=== PATIENT | female | born 1945 | race Hispanic/Latino ===

== ENCOUNTER → 2018-02-02 11:24 | Outpatient (CLI) | payer MEDICARE, OTHER, SELFPAY ==
--- NOTE | 2018-02-02 | DI.MG.S_ITS ---
BILATERAL DIGITAL SCREENING MAMMOGRAM 3D/2D WITH CAD: 02/02/2018 CLINICAL: Routine screening. Family history of breast cancer. Comparison is made to exams dated: 02/12/2015 mammogram, 10/25/2013 mammogram, and 10/09/2012 mammogram - [facility]. The tissue of both breasts is heterogeneously dense. This may lower the sensitivity of mammography. Current study was also evaluated with a Computer Aided Detection (CAD) system. No significant masses, calcifications, or other findings are seen in either breast. There has been no significant interval change. IMPRESSION: NEGATIVE There is no mammographic evidence of malignancy. A 1 year screening mammogram is recommended. This exam was interpreted at Station ID: [id number]. NOTE: For mammograms, a report in lay terms will be sent to the patient. Approximately 15% of breast malignancies will not be visualized mammographically. In the management of a palpable breast mass, a negative mammogram must not discourage biopsy of a clinically suspicious lesion. Electronically Signed By: Chidi pena/jennifer:02/02/2018 12:27:50 letter sent: Normal Exam ACR BI-RADS Category 1: Negative [id number]
== END ==
PROVIDERS: Family Provider Family Medicine; PCP Family Medicine; Visit Provider Family Medicine
DX: Z12.31 Encounter for screening mammogram for malignant neoplasm of breast (principal); Z80.3 Family history of malignant neoplasm of breast
CPT/HCPCS: 77063; 77067

== ENCOUNTER → 2019-08-15 12:46 | Outpatient (CLI) | payer MEDICARE, OTHER, SELFPAY | PROVIDERS: PCP Family Medicine; Visit Provider Family Medicine | DX: M85.851 Other specified disorders of bone density and structure, right thigh (principal); Z78.0 Asymptomatic menopausal state; Z87.891 Personal history of nicotine dependence | CPT/HCPCS: 77080 ==

== ENCOUNTER 2020-02-19 11:34 | Emergency (ER) | payer MEDICARE, OTHER, SELFPAY ==
[2020-02-19 11:42] VITALS: BP 184/98; PULSE 66; RESP 18; TEMP 36.1; O2SAT 99; BMI 23.6
--- NOTE | 2020-02-19 11:45 | DI.RAD.S_ITS ---
PROCEDURE: XR HAND RT MIN 3V INDICATIONS: trauma w/ laceration on dorsum of hand TECHNIQUE: 3 views of the hand(s) acquired. COMPARISON: None. FINDINGS: Bones: No fractures or dislocations. 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 Carpal bones are normally aligned. No suspicious bony lesions. Soft tissues: No suspicious soft tissue calcifications. Dorsal laceration at the level of metacarpal bone is seen. No radiopaque foreign body is noted. IMPRESSION: No acute right hand fracture or dislocation. No radiopaque foreign body. Osteoarthritic changes throughout right hand and wrist. Dictated by: Octavio De Luna M.D. on 02/19/2020 at 12:19 Approved by: Octavio De Luna M.D. on 02/19/2020 at 12:20
--- NOTE | 2020-02-19 11:57 | ED.SKABFB ---
HPI - Skin/Abscess/Foreign Bdy <CONCHITA Whiteside - Last Filed: 02/19/20 16:00> General Chief complaint: Skin/Abscess/Foreign Body Stated complaint: right arm injury Time Seen by Provider: 02/19/20 11:55 Source: patient Mode of arrival: Ambulatory Limitations: no limitations History of Present Illness HPI narrative: The patient is a 74-year-old female former smoker with history of hypertension who presents with a chief complaint of right hand injury. She slipped going on the stairs, and jammed her right hand into a railing. She has a laceration on the top of right hand. States she has full range of motion all fingers. Does not know when her last tetanus was. Did not wash out her laceration or clean it. Denies any falls other than the fall into the railing, denies any other injuries. Related Data Home Medications Medication Instructions Recorded Confirmed hydrochlorothiazide 6.25 mg PO QDAY #0 12/17/12 metoprolol succinate [Toprol XL] 50 mg PO QDAY #0 12/17/12 atorvastatin [Lipitor] 10 mg PO QDAY #0 06/03/17 Allergies Allergy/AdvReac Type Severity Reaction Status Date / Time Penicillins Allergy Severe ANAPHYLAXIS Verified 02/19/20 11:44 Review of Systems <CONCHITA Whiteside - Last Filed: 02/19/20 16:00> Review of Systems Narrative: GENERAL: Denies chills, fatigue, malaise, fever, sweats. HEENT: Denies sinus pain, ear pain, sore throat, difficulty swallowing, dizziness. RESPIRATORY: Denies dyspnea, cough, wheezing, hemoptysis, sputum. CARDIOVASCULAR: Denies chest pain, palpitations, orthopnea, edema, GASTROINTESTINAL: Denies nausea, vomiting, abdominal pain, diarrhea, constipation, melena. : Denies dysuria, frequency, incontinence, hematuria, urinary retention. MUSCULOSKELETAL: See HPI SKIN: See HPI NEUROLOGIC: Denies weakness, headache, numbness, change in speech, confusion, seizures, incoordination. PSYCHIATRIC: No concerning psychosocial issues. 12 point review of systems is negative except for those stated above Patient History <CONCHITA Whiteside - Last Filed: 02/19/20 16:00> Social History Smoking Status: Former smoker Smoking Status: Former smoker alcohol intake frequency: 0-2 drinks per day Substance Use Type: does not use Exam <CONCHITA Whiteside - Last Filed: 02/19/20 16:00> Narrative Exam Narrative: GENERAL: This is a well-nourished, well-developed patient, in no acute distress HEAD: Atraumatic. Normocephalic. No temporal or scalp tenderness. EYES: Pupils equal round and reactive. Extraocular motions intact. No scleral icterus. No injection or drainage. ENT: Nose without bleeding, purulent drainage or septal hematoma. Airway patent. NECK: Trachea midline. No JVD or lymphadenopathy. Supple, nontender, no meningeal signs. CARDIOVASCULAR: Regular rate and rhythm RESPIRATORY: No cough. No increased respiratory effort. No accessory muscle use. EXTREMITIES: Skin exam as noted. Full range of motion noted all fingers right hand. Positive right radial pulse. Cap refill intact all fingers. BACK: Nontender without deformity or crepitance. No flank tenderness. NEURO: AOx3. SKIN: V-shaped laceration/skin tear on dorsum of right hand, no obvious muscle or tendon involvement. Oozing blood. 1 cm. Initial Vital Signs Initial Vital Signs: Vital Signs Temperature 96.9 F L 02/19/20 11:42 Pulse Rate 66 02/19/20 11:42 Respiratory Rate 18 02/19/20 11:42 Blood Pressure 184/98 H 02/19/20 11:42 Pulse Oximetry 99 02/19/20 11:42 <Estephania Sexton MD - Last Filed: 02/19/20 18:18> Initial Vital Signs Initial Vital Signs: Vital Signs Temperature 96.9 F L 02/19/20 11:42 Pulse Rate 66 02/19/20 11:42 Respiratory Rate 18 02/19/20 11:42 Blood Pressure 184/98 H 02/19/20 11:42 Pulse Oximetry 99 02/19/20 11:42 Procedures <CONCHITA Whiteside - Last Filed: 02/19/20 16:00> Laceration Repair Laceration 1: Site: hand Side (If applicable): left and right Size (cm): 1 Description: flap Depth: simple, single layer Pre-repair: wound explored, irrigated extensively (With sterile water, Hibiclens) and deep structures intact Skin layer closed with: steri-strips Scores <CONCHITA Whiteside - Last Filed: 02/19/20 16:00> GCS [place] coma scale eye opening: Spontaneous [place] coma scale verbal response: Orientated [place] coma scale motor response: Obey commands [place] coma scale total score: 15 Course <CONCHITA Whiteside - Last Filed: 02/19/20 16:00> Orders Ordered: ED Orders 02/19/20 11:45 XR hand RT min 3V Stat Discontinued Medications Diphtheria/Tetanus/Acell Pertussis (Adacel) 0.5 ml IM .ONCE ONE Stop: 02/19/20 11:46 Last Admin: 02/19/20 12:33 Dose: 0.5 ml Documented by: ROGER Vital Signs Vital signs: Vital Signs - 8 hr 02/19/20 11:42 02/19/20 12:53 Temperature 96.9 F L Pulse Rate 66 61 Respiratory Rate 18 14 Blood Pressure 184/98 H Blood Pressure [Left Arm] 155/92 H Pulse Oximetry 99 98 <Estephania Sexton MD - Last Filed: 02/19/20 18:18> Orders Ordered: ED Orders 02/19/20 11:45 XR hand RT min 3V Stat Discontinued Medications Diphtheria/Tetanus/Acell Pertussis (Adacel) 0.5 ml IM .ONCE ONE Stop: 02/19/20 11:46 Last Admin: 02/19/20 12:33 Dose: 0.5 ml Documented by: ROGER Vital Signs Vital signs: Vital Signs - 8 hr 02/19/20 11:42 02/19/20 12:53 Temperature 96.9 F L Pulse Rate 66 61 Respiratory Rate 18 14 Blood Pressure 184/98 H Blood Pressure [Left Arm] 155/92 H Pulse Oximetry 99 98 MDM - Skin/Abscess/Foreign Bdy <CONCHITA Whiteside - Last Filed: 02/19/20 16:00> Imaging Data Extremity x-ray #1: Radiologist's Impression: [address] [place] [id number] XRay Report Signed Patient: Racheal Raymond LMR#: [id number] : 6Acct:[id number] Age/Sex: 74 / FDate of Service: 02/19/20 Loc: ED Accession Number: [id number] Procedure: XR hand RT min 3V Ordering Provider: Estephania Sexton MD PROCEDURE: XR HAND RT MIN 3V INDICATIONS: trauma w/ laceration on dorsum of hand TECHNIQUE: 3 views of the hand(s) acquired. COMPARISON: None. FINDINGS: Bones: No fractures or dislocations. 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 Carpal bones are normally aligned. No suspicious bony lesions. Soft tissues: No suspicious soft tissue calcifications. Dorsal laceration at the level of metacarpal bone is seen. No radiopaque foreign body is noted. IMPRESSION: No acute right hand fracture or dislocation. No radiopaque foreign body. Osteoarthritic changes throughout right hand and wrist. Dictated by: Octavio De Luna M.D. on 02/19/2020 at 12:19 Approved by: Octavio De Luna M.D. on 02/19/2020 at 12:20 MDM Narrative Medical decision making narrative: The patient is a 74-year-old female who presents with a chief complaint of a hand injury. Her tetanus is updated. No obvious fracture or foreign body on x-ray. Wound was copiously cleansed and irrigated. Wound was closed as per procedural note. Discussed at length keeping wound clean and dry, following up with primary care provider, monitoring for signs of infection such as redness purulent drainage etcetera. Patient has no questions or concerns upon discharge and states understanding of return precautions as well as follow-up care Discharge Plan Departure Patient Disposition: Home Clinical Impression: Skin tear Injury of hand, right Qualifiers: Encounter type: initial encounter Qualified Code(s): S69.91XA - Unspecified injury of right wrist, hand and finger(s), initial encounter Discharge Date/Time: 02/19/20 13:27 Instructions: DI for Laceration Repair Steri-Strips Activity Restrictions/Additional Instructions: Thank you for trusting us with your care today Your x-ray has no evidence of foreign body or fracture. We elected to close your wound with Steri-Strips. Please monitor for signs of infection such as redness, purulent drainage etcetera Do not get your hand dirty. This can increase her chance of infection. Please come back to emergency department for any acute concerns We also updated your tetanus today Prescriptions: No Action metoprolol succinate [Toprol XL] 50 MG tablet extended release 24 hr 50 mg PO QDAY Qty: 0 RF: 0 hydrochlorothiazide 12.5 MG capsule 6.25 mg PO QDAY Qty: 0 RF: 0 atorvastatin [Lipitor] 10 MG tablet 10 mg PO QDAY Qty: 0 RF: 0 Referrals: Reba Cordova MD [Primary Care Provider] - <Estephania Sexton MD - Last Filed: 02/19/20 18:18> Cosign ED Attending Cosignature Attestation: I was immediately available in the department for consultation throughout this patient's visit. I agree with documentation as above. Estephania Sexton MD
[2020-02-19] MEDS: TET,DIPH,PERTUSS(ACELL),VAC/PF 0.5 ML SYRINGE IM (12:33)
[2020-02-19 12:53] VITALS: BP 155/92; PULSE 61; RESP 14; O2SAT 98
--- NOTE | 2020-02-19 13:07 | PC.NURSE ---
patient was given wound care of her right hand. She has steri strips, telfa, 4x4's, kavon, and coban. She tolerated the procedure well.
== END 2020-02-19 13:27 | disposition home or self-care (01) ==
PROVIDERS: Emergency Provider Nurse Practitioner Family; PCP Family Medicine
DX: S61.411A Laceration without foreign body of right hand, initial encounter (principal); W22.8XXA Striking against or struck by other objects, initial encounter; Z23 Encounter for immunization
CPT/HCPCS: 73130; 90471; 99283; 90715

== ENCOUNTER → 2021-05-25 16:42 | Outpatient (CLI) | payer MEDICARE, OTHER, SELFPAY ==
--- NOTE | 2021-05-25 | DI.RAD.S_ITS ---
PROCEDURE: XR SHOULDER RT MIN 2V INDICATIONS: RIGHT SHOULDER TENDONITIS TECHNIQUE: 3 views of the shoulder were acquired. COMPARISON: CR, CHEST 1 VIEW, 12/17/2012, 17:46. FINDINGS: Bones: No fractures or dislocations. No suspicious bony lesions. Visualized ribs appear intact. Mild joint narrowing with periarticular osteophyte formation. Soft tissues: No suspicious soft tissue calcifications. IMPRESSION: Mild acromioclavicular and glenohumeral joint degeneration. Dictated by: Pedro Garnica [facility] Interpreted: Octavio De Luna MD on 05/25/2021 at 17:03 Transcribed by: BERYL on 05/25/2021 at 17:03 Approved by: Octavio De Luna M.D. on 05/25/2021 at 17:29
== END ==
PROVIDERS: PCP Family Medicine; Referring Provider Family Medicine; Visit Provider Family Medicine
DX: M65.811 Other synovitis and tenosynovitis, right shoulder (principal); M19.011 Primary osteoarthritis, right shoulder
CPT/HCPCS: 73030

== ENCOUNTER → 2021-06-14 13:20 | Outpatient (CLI) | payer MEDICARE, OTHER, SELFPAY ==
--- NOTE | 2021-06-14 | DI.US.S_ITS ---
LIMITED ULTRASOUND OF RIGHT BREAST: 06/14/2021 CLINICAL: Focal right breast pain. Comparison is made to exams dated: 06/14/2021 mammogram, 02/02/2018 mammogram, 02/12/2015 mammogram, and 10/25/2013 mammogram - [facility]. Real-time ultrasound of the right breast 12 o'clock, and retroareolar regions was performed. Rosa scale images of the real-time examination were reviewed. No significant abnormalities were seen sonographically in the right breast in the region of pain. IMPRESSION: NEGATIVE There is no sonographic evidence of malignancy. Exam findings were conveyed to the patient. Patient is advised to monitor for significant change. Clinical follow-up as needed. A 1 year screening mammogram is recommended. This exam was interpreted at Station ID: [id number]. Electronically Signed By: Kofi Calderon M.D. slc/:06/14/2021 14:35:43 letter sent: Normal Exam Ultrasound BI-RADS: 1 Negative
--- NOTE | 2021-06-14 | DI.MG.S_ITS ---
BILATERAL DIGITAL DIAGNOSTIC MAMMOGRAM 3D/2D: 06/14/2021 CLINICAL: Right nipple pain. Right breast enlargement. Comparison is made to exams dated: 02/02/2018 mammogram, 02/12/2015 mammogram, 10/25/2013 mammogram, and 10/09/2012 mammogram - [facility]. The tissue of both breasts is heterogeneously dense. This may lower the sensitivity of mammography. No significant masses, calcifications, or other findings are seen in either breast. IMPRESSION: INCOMPLETE: NEEDS ADDITIONAL IMAGING EVALUATION No mammographic evidence of malignancy. A targeted ultrasound of the right breast region of pain is recommended and will immediately follow. This exam was interpreted at Station ID: [id number]. NOTE: For mammograms, a report in lay terms will be sent to the patient. Approximately 15% of breast malignancies will not be visualized mammographically. In the management of a palpable breast mass, a negative mammogram must not discourage biopsy of a clinically suspicious lesion. Electronically Signed By: Kofi Calderon M.D. slc/:06/14/2021 13:53:27 ACR BI-RADS Category 0: Incomplete [id number]
== END ==
PROVIDERS: PCP Family Medicine; Referring Provider Family Medicine; Visit Provider Family Medicine
DX: R92.2 Inconclusive mammogram (principal); N64.4 Mastodynia; N62 Hypertrophy of breast
CPT/HCPCS: 76642; 77066; G0279

== ENCOUNTER → 2021-07-14 13:04 | Outpatient (CLI) | payer MEDICARE, OTHER, SELFPAY ==
--- NOTE | 2021-07-14 | DI.MRI.S_ITS ---
BREAST MRI OF BOTH BREASTS: 07/14/2021 CLINICAL: Right breast nipple pain. Comparison is made to exams dated: 06/14/2021 ultrasound, 06/14/2021 mammogram, and 02/02/2018 mammogram [facility]. INDICATIONS: RIGHT BREAST PAIN TECHNIQUE: The patient was placed prone in a dedicated breast imaging coil. Precontrast axial STIR and 3D FLASH without fat saturation sequences were obtained. Both before and after bolus injection of contrast, sequential 1-minute axial 3D FLASH with fat saturation sequences for 3 time points, with subtraction images and maximum intensity projections (MIP's) generated. Delayed sagittal FLASH images with fat saturation were also obtained. Computer-aided detection, including computer algorithm analysis of MRI image data for lesion detection and characterization, pharmacokinetic analysis, with further physician review for interpretation, was performed. FINDINGS: Image quality: Excellent. There is minimal background parenchymal enhancement. The tissue of both breasts is heterogeneously dense. Right breast: No suspicious mass or abnormal non-mass enhancement is identified. No focal abnormality is seen to account for the reported breast pain. No suspicious axillary or internal mammary lymphadenopathy. Left breast: A 1.8 x 0.9 x 1.1 cm area of incidental focal homogeneous non-mass enhancement is seen in the upper inner quadrant of the left breast at the 11 o'clock position anterior depth approximately 3.5 cm from the nipple. The lesion is hyperintense on T2-weighted images. A central area of interspersed fat or fatty hilum is seen. Kinetic curve assessment demonstrates slow enhancement on initial phase and progressive enhancement on delayed phase. No corresponding abnormality is seen in this location on the prior mammogram from 06/14/2021. Miscellaneous: The included anterior chest wall and upper abdomen demonstrate no acute abnormality. IMPRESSION: INCOMPLETE: NEEDS ADDITIONAL IMAGING EVALUATION 1. An incidental 1.8 cm area of focal non-mass enhancement is seen in the left breast at the 11 o'clock position anterior depth 3-4 cm from the nipple that has indeterminate features and no mammographic correlate. Differential diagnosis includes an intramammary lymph node as well as other benign and malignant etiologies. Recommend second-look ultrasound for further evaluation. If no abnormality is seen sonographically, an MR-guided biopsy could be performed. 2. No abnormality is seen in the right breast to account for the reported pain. No right breast mass or suspicious non-mass enhancement. 3. No suspicious axillary or internal mammary lymphadenopathy. BIRADS 0: Needs additional imaging evaluation. Second-look left breast ultrasound is recommended for further evaluation. COMMENT: The imaging literature indicates that a negative contrast breast MRI examination has a high sensitivity and a moderate specificity for detecting and excluding invasive carcinomas to a detection threshold of 3-5 mm; nonetheless, appropriate clinical and mammographic follow-up are recommended. MRI is not sensitive for detecting DCIS (ductal carcinoma in situ) and may not detect large invasive neoplasms that show only minimal enhancement such as mucinous carcinoma. If there are suspicious calcifications or clinically worrisome palpable masses, then biopsy should still be considered. Invasive neoplasms can be hidden by co-existent and benign enhancement caused by mastitis, hormone therapy effects, radiation therapy, , and recent biopsy or surgery. False positive examinations can occur in a number of circumstances, including breasts that have recently been subject to invasive procedures and those that contain atypical ductal hyperplasia, hormonally stimulated glandular tissue, fat necrosis, or radial scars. Future imaging is recommended as follows: 06/15/2022 screening mammogram. This exam was interpreted at Station ID: [id number]. Electronically Signed By: David De Souza M.D. ar/:07/14/2021 16:32:36 Entry: - 07/15/2021 09:26:15 ACR BI-RADS Category 0: Incomplete 3340F
== END ==
PROVIDERS: PCP Family Medicine; Referring Provider Family Medicine; Visit Provider Family Medicine
DX: R92.2 Inconclusive mammogram (principal); N64.4 Mastodynia; N64.89 Other specified disorders of breast
CPT/HCPCS: 77049; A9579

== ENCOUNTER → 2021-07-27 14:32 | Outpatient (CLI) | payer MEDICARE, OTHER, SELFPAY ==
--- NOTE | 2021-07-27 14:35 | DI.US.S_ITS ---
LIMITED ULTRASOUND OF LEFT BREAST: 07/27/2021 CLINICAL: F/U MRI. Comparison is made to exams dated: 07/14/2021 breast MRI, 06/14/2021 mammogram, and 02/02/2018 mammogram - [facility]. Color flow ultrasound of the left breast 11 o'clock region was performed. Rosa scale images of the real-time examination were reviewed. There is a 1.2 cm x 1.4 cm x 0.7 cm irregular mass with a microlobulated margin in the left breast at 11 o'clock anterior depth 3 cm from the nipple. This irregular mass is hypoechoic and heterogeneously echogenic with fatty hilum and posterior acoustic enhancement. This correlates with breast MRI findings but was not seen on the prior mammogram. IMPRESSION: SUSPICIOUS OF MALIGNANCY The 1.2 cm x 1.4 cm x 0.7 cm irregular mass in the left breast is at a low suspicion for malignancy. An ultrasound guided biopsy is recommended. The findings and recommendations were personally discussed with the patient via telephone at the time of the exam. Future imaging is recommended as follows: 06/15/2022 screening mammogram. This exam was interpreted at Station ID: [id number]. Electronically Signed By: David trivedi/jennifer:07/27/2021 15:13:35 letter sent: Biopsy Required Ultrasound BI-RADS: 4a Low suspicion for malignancy
== END ==
PROVIDERS: PCP Family Medicine; Referring Provider Family Medicine; Visit Provider Family Medicine
DX: R92.8 Other abnormal and inconclusive findings on diagnostic imaging of breast (principal); N63.22 Unspecified lump in the left breast, upper inner quadrant
CPT/HCPCS: 76642

== ENCOUNTER → 2021-08-11 10:35 | Outpatient (CLI) | payer MEDICARE, OTHER, SELFPAY ==
--- NOTE | 2021-08-11 | DI.US.S_ITS ---
PROCEDURE: US BX BREAST PERC W VAC DEVICE COMPARISON: None. INDICATIONS: LEFT BREAST MASS FINDINGS: IMPRESSION: Dictated by: Caroline Man MD, PhD on 08/11/2021 at 13:11 Approved by: Caroline Man MD, PhD on 08/11/2021 at 13:11
--- NOTE | 2021-08-11 | PATH_ITS ---
[facility] Accession Number: [id number] . 01 Material submitted: . breast - LEFT BREAST BIOPSY, 11:00 3CMFN . 01 Diagnosis: Left Breast, 11 o'clock, 3 cm from Nipple, Image-Guided Core Biopsy: Focal atypical lobular hyperplasia. Fibrocystic and fibroadenomatous change. Negative for invasive malignancy. MRV 08/13/2021 1306 Local . 01 Comment: An e-cadherin *immunostain is obtained, with the control stained appropriately, and is negative or shows low level expression on the proliferative lesion of interest, supporting lobular as opposed to ductal origin. . * This test was developed and its performance characteristics determined by [employer]. It has not been cleared or approved by the U.S. Food and Drug Administration. The FDA has determined that such clearance or approval is not necessary. This test is used for clinical purposes. It should not be regarded as investigational or for research. . 01 Electronically signed: . Berta Harkins MD, Pathologist NPI- [id number] . 01 Gross description: . Received one formalin-filled container, labeled with the patient's name and labeled left breast 11 o'clock 3 cm FN. The specimen is received with a plastic filter in container, sample loose in container and consists of three fragments of yellow-barber, cylindrical-shaped tissue and blood which range in size from 0.8 x 0.3 x 0.3 cm to 1.2 x 0.3 x 0.3 cm. All fragments are totally submitted in cassette A. Possible collection date and time per container: 08/11/21 at 11:50. Total fixation time: Approximately 15 hours. ([id number]) /FRR 08/12/2021 0331 Local . 01 Pathologist provided ICD-10: N60.81 . 01 CPT . 125951, [id number] Performed at: [facility] [address] [place] [address], [place], [place] [id number] MD Xu Yang MD Phone: [phone]
--- NOTE | 2021-08-11 | DI.MG.S_ITS ---
UNILATERAL LEFT DIGITAL DIAGNOSTIC MAMMOGRAM 3D/2D: 08/11/2021 CLINICAL: Clip. Comparison is made to exams dated: 07/27/2021 ultrasound, 07/14/2021 breast MRI, 06/14/2021 ultrasound, and 06/14/2021 mammogram - [facility]. The tissue of left breast is heterogeneously dense. This may lower the sensitivity of mammography. There is a marker clip in the appropriate position in the left breast at 11 o'clock middle depth. This marker clip placement is at the biopsy site. IMPRESSION: POST PROCEDURE MAMMOGRAM FOR MARKER PLACEMENT There was a successful marker clip placement in the left breast middle depth. This exam was interpreted at Station ID: [id number]. NOTE: For mammograms, a report in lay terms will be sent to the patient. Approximately 15% of breast malignancies will not be visualized mammographically. In the management of a palpable breast mass, a negative mammogram must not discourage biopsy of a clinically suspicious lesion. Electronically Signed By: Caroline meredith/jennifer:08/11/2021 12:06:55 ACR BI-RADS Category Post-procedure mammogram for marker placement
--- NOTE | 2021-08-11 11:13 | DI.US.S_ITS ---
Patient Name: SUSANNE FERRO date: 1945 Sex: F Attending Physician: Tasha Indications: Date: 08/11/2021 13:03 At the request of: ANTWAN SILVA Procedure: US bx breast perc w vac device ULTRASOUND GUIDED BIOPSY LEFT BREAST USING VACUUM DEVICE WITH MARKING DEVICE INSERTED AND POST DIGITAL MAMMOGRAPHIC IMAGIN08/11/2021 CLINICAL: Left breast mass. PATIENT CONSENT: Risks (minor bleeding, infection, vasovagal reaction and repeat procedure), benefits and alternatives were explained to the patient and written informed consent was obtained. Correlation is made to exams dated: 07/27/2021 ultrasound, 07/14/2021 breast MRI, 06/14/2021 ultrasound, 06/14/2021 mammogram, 02/02/2018 mammogram, and 02/12/2015 mammogram - [facility]. An ultrasound guided biopsy using real-time ultrasound was performed for the microlobulated irregular shaped mass located in the left breast at 11 o'clock middle depth. The skin was prepped in the usual manner. Local anesthetic was administered to the access site. A skin phuong was made in the breast. The abnormality was approached from the lateral aspect. A 13 gauge biopsy needle was placed adjacent to the abnormality under ultrasound guidance. Once the needle was documented to be in the correct location, three specimens were obtained using the Mammotome biopsy system. A Vision biopsy clip was inserted into the biopsy cavity. A skin closure strip was applied to the access site. Post procedure digital mammographic imaging was obtained. The specimens were sent to the laboratory for pathological analysis. IMPRESSION: ULTRASOUND GUIDED BIOPSY HIGH RISK BENIGN Ultrasound guided biopsy of the mass in the left breast at 11 o'clock middle depth was successful. Pathology indicates high risk benign atypical lobular hyperplasia (ALH). Pathology results are concordant with imaging findings. A surgical consultation is recommended. This exam was interpreted at Station ID: [id number]. Caroline Loera M.D. Continued Report - Page 2 of 2 Patient Name: SUSANNE FERRO date: 1945 Sex: F Attending Physician: Tasha Indications: Date: 08/11/2021 13:03 At the request of: ANTWAN SILVA Procedure: US bx breast perc w vac device ldc,aty/:08/17/2021 17:12:42
== END ==
PROVIDERS: PCP Family Medicine; Referring Provider Family Medicine; Visit Provider Family Medicine
DX: N60.92 Unspecified benign mammary dysplasia of left breast; N60.12 Diffuse cystic mastopathy of left breast
CPT/HCPCS: 19083; 77065

== ENCOUNTER → 2022-07-25 13:02 | Outpatient (CLI) | payer MEDICARE, OTHER, SELFPAY ==
--- NOTE | 2022-07-25 | DI.NM.S_ITS ---
PROCEDURE: NM CAL PERF SPECT REST & STR Rest and exercise myocardial perfusion SPECT with gated imaging and ejection fraction RADIOPHARMACEUTICAL: 26.1 mCi Tc-99m sestamibi IV at rest and 25.7 mCi Tc-99m sestamibi IV at peak exercise. A 2 day-protocol was performed. INDICATIONS: Paroxysmal atrial fibrillation TECHNIQUE: Radiopharmaceutical was injected at peak stress test, and also at rest. SPECT images were obtained. SPECT myocardial perfusion images were displayed in short axis, horizontal long axis, and vertical long axis views. Gated images were reviewed using [email or web address] software. COMPARISON: None. CARDIAC STRESS: A standard Paul treadmill exercise tolerance test was performed by the patient under the supervision of an attending staff. The patient exercised for 8 minutes and 34 seconds; functional aerobic impairment (FANG) is -61%. Hemodynamic data: There is normal heart rate response to exercise stress. Hypertensive response to exercise. Patient achieved 92% of maximum predicted heart rate at peak exercise. Symptoms: Patient 3/10 chest pain during exercise that resolved during within 1 minute of recovery. EKG: No diagnostic EKG changes of ischemia; occasional PACs and PVCs. FINDINGS: Raw data: There is good myocardial labeling by radiotracer. No significant motion artifacts. Rpnb-oh-lzmuj ratio is 0.23 (normal is less than 0.38 for sestamibi tracer, and less than 0.50 for thallium tracer). Left ventricle function: Gated images demonstrate normal left ventricle wall thickening. No segmental wall motion abnormality. No transient ischemic dilation; TID is 0.81 (normal less than 1.3). The left ventricle resting end-diastolic volume is 74 mL. Left ventricle stress ejection fraction is 93%; normal values are above 45%. Myocardial perfusion: There is mildly intense fixed distal anterior wall defect that resolve with prone imaging, suggesting breast attenuation artifact. No ischemia or infarction. IMPRESSION: Low risk, probably normal treadmill nuclear stress test. Correlate chest pain clinically. 1) No perfusion evidence of ischemia or infarction. There is mildly intense fixed distal anterior wall defect that resolve with prone imaging, suggesting breast attenuation artifact. 2) Normal left ventricular size, wall motion, and systolic function (EF post stress 93%). 3) No ST changes with exercise. 4) Mild (3/10) non-diagnostic chest pain with exercise that resolved with early recovery. 5) Excellent exercise capacity (10.1 METs, FANG -61%). Target heart rate achieved. Hypertensive response to exercise (patient didn't take her BP lowering meds prior to stress test). Resting BP 168/104mmHg. Max BP 198/120mmHg. 6) No prior nuclear stress test available for comparison. Dictated by: Melissa Glynn MD on 07/26/2022 at 16:59 Approved by: Melissa Glynn MD on 07/26/2022 at 17:10
--- NOTE | 2022-07-25 | DI.ECHO.S_ITS ---
[place] [facility] +---------+ : : [address] : : : : [id number] : : : : Phone: [phone] Echocardiogram Report + + :Name: SUSANNE FERRO Study Date: 07/25/2022 Height: 68 in : :[facility] ReadingLocation: Weight: 170 lb : : Gender: Female BSA: 1.9 m2 : :: 1945 Age: 77 yrs BP: 160/105 mmHg: :Reason For Study: ATRIAL FIBRILLATION : :Ordering Physician: RICARDO, : :ANTWAN Performed By: Karissa Cuello : :Referring: ANTWAN SILVA : + + Interpretation Summary Normal left ventricle size with ejection fraction 60-65%. The left atrium is mildly dilated. Mild mitral regurgitation. Mild tricuspid regurgitation. The right ventricular systolic pressure is estimated to be at least 37 mmHg based on an estimated right atrial pressure of 3 mm Hg. The ascending aorta is mildly enlarged. Procedure: A two-dimensional transthoracic echocardiogram with color flow and Doppler was performed. The study quality was technically adequate. Comparison is made with the echocardiogram of 12/28/2012. The patient was in sinus rhythm with heart rates between 56-71 bpm during the exam. Left Ventricle: The left ventricle is normal in size and wall thickness. The ejection fraction is estimated to be 60-65%. There are no focal wall motion abnormalities. Right Ventricle: The right ventricle is normal in size and function. Atria: The left atrium is mildly dilated. Right atrial size is normal. There is no Doppler evidence for an interatrial shunt. Mitral Valve: The mitral valve is normal in structure and function. There is mild mitral regurgitation. Aortic Valve: The aortic valve is trileaflet. The aortic valve opens well. There is no aortic valve stenosis. No aortic regurgitation is present. Tricuspid Valve: The tricuspid valve is normal in structure and function. There is mild tricuspid regurgitation. The right ventricular systolic pressure is estimated to be at least 37 mmHg based on an estimated right atrial pressure of 3 mm Hg. Pulmonic Valve: The pulmonic valve leaflets are thin and pliable; valve motion is normal. There is mild pulmonic regurgitation. Great Vessels: The aortic root is normal size. The ascending aorta is mildly enlarged. The IVC is of normal diameter and collapses greater than 50% with a sniff. This suggests a low right atrial pressure of 3 mm Hg. Pericardium/ Pleura There is no pericardial effusion. There is no pleural effusion. MMode/2D Measurements & Calculations LVIDd: 5.0 cm LVOT diam: 2.0 cm LVIDs: 2.9 cm Ao root diam: 2.8 cm FS: 42.1 % asc Aorta Diam: 3.8 cm IVSd: 0.77 cm Ao Arch Diam (Prox Trans): 2.9 cm LVPWd: 0.73 cm LV monroe. diameter/BSA (cm/m^2): 2.6 LV sys. diameter/BSA (cm/m^2): 1.5 LA A2 area: 20.9 cm2 RA long axis: 5.0 cm LA A4 area: 24.7 cm2 RA area: 17.3 cm2 LA length (vol): 6.2 cm RA vol: 51.2 ml LA vol: 70.6 ml RA : 26.9 ml/m2 LA vol index: 37.0 ml/m2 IVC diam: 1.6 cm RVD1 (basal): 3.7 cm RVD2 (mid): 2.9 cm TAPSE: 2.1 cm Doppler Measurements & Calculations Ao V2 max: 158.9 cm/sec LVOT Max William: 142.5 cm/sec Ao V2 mean: 110.6 cm/sec LV V1 max P.1 mmHg Ao max P.1 mmHg LV V1 VTI: 34.3 cm Ao mean P.6 mmHg EDWIN(I,D): 2.6 cm2 Ao V2 VTI: 40.4 cm EDWIN(V,D): 2.7 cm2 sev ratio: 0.85 EDWIN indexed to BSA (cm^2/m^2): 1.4 MV E max william: 114.0 cm/sec TR max william: 290.8 cm/sec MV A max william: 66.8 cm/sec TR max P.8 mmHg MV E/A: 1.7 PA V2 max: 87.8 cm/sec Med Peak E' William: 6.8 cm/sec PA V2 mean: 66.5 cm/sec E/E' med: 16.8 PA mean P.0 mmHg Lat Peak E' William: 9.5 cm/sec PA pr(Accel): 13.9 mmHg E/E' lat: 12.0 E/e' average: 14.4 MV dec time: 0.21 sec SV(LVOT): 105.1 ml Electronically signed by: Sarita Woodward on Reading Physician:07/25/2022 10:42 PM
[2022-07-25 15:29] LABS: COVID19 -Nasal RAPID Negative (Negative)
== END ==
PROVIDERS: PCP Family Medicine; Referring Provider Family Medicine; Visit Provider Family Medicine
DX: I48.0 Paroxysmal atrial fibrillation (principal); I08.1 Rheumatic disorders of both mitral and tricuspid valves; I77.89 Other specified disorders of arteries and arterioles; R06.09 Other forms of dyspnea; R00.0 Tachycardia, unspecified; Z86.79 Personal history of other diseases of the circulatory system; Z20.822 Contact with and (suspected) exposure to COVID-19
CPT/HCPCS: 78452; 87635; 93017; 93306; A9502

== ENCOUNTER 2022-07-27 09:51 | Emergency (ER) | payer MEDICARE, OTHER, SELFPAY ==
[2022-07-27] VITALS (11 sets, daily range): BP systolic 139–232; BP diastolic 79–111; PULSE 61–78; RESP 15–20; TEMP 36.9; O2SAT 94–98; BMI 25.8
--- NOTE | 2022-07-27 09:56 | DI.RAD.S_ITS ---
PROCEDURE: XR CHEST 1V INDICATIONS: chest pain TECHNIQUE: One view of the chest was acquired. COMPARISON: [facility], , CHEST 2 VIEW, 05/31/2013, 13:32. FINDINGS: Surgical changes and devices: Pacemaker device is projected over the left upper lung. Lungs and pleura: Lungs are clear. No pleural effusions or pneumothorax. Mediastinum: Mediastinal contours appear normal. Heart size is normal. Bones and chest wall: No suspicious bony lesions. Overlying soft tissues appear unremarkable. IMPRESSION: No acute cardiopulmonary findings. Dictated by: Cheryl Nunez M.D. on 07/27/2022 at 10:24 Approved by: Cheryl Nunez M.D. on 07/27/2022 at 10:37
[2022-07-27 10:28] LABS: Add Manual Diff / Slide Review NO; Basophils Absolute Auto 0 /uL (0-100); Basophils Percent Auto 0.9 % (0-2); Eosinophils Absolute Auto 300 /uL (0-450); Eosinophils Percent Auto 8.2 % (2-4); Hematocrit 41.6 % (36-46); Hemoglobin 14.3 g/dL (12.0-16.0); Lymphocytes Absolute Auto 1300 /uL (1100-4500); Lymphocytes Percent Auto 31.2 % (25-40); Mean Corpuscular HGB Conc 34.3 % (30-36); Mean Corpuscular Hemoglobin 31.3 PG (26-34); Mean Corpuscular Volume 91.1 fL (80-100); Monocytes Absolute Auto 300 /uL (0-900); Monocytes Percent Auto 7.2 % (3-14); Neutrophils Absolute Auto 2200 /uL (1500-7000); Neutrophils Percent Auto 52.5 % (50-75); Platelet Count 158 X10^3/uL (150-400); Red Blood Cell Count 4.57 X10^6/uL (4.0-5.2); Red Cell Distribution Width 13.4 % (11.6-14.8); White Blood Cell Count 4.3 X10^3/uL (4.5-11.0)
--- NOTE | 2022-07-27 10:35 | ED.GENADULT ---
HPI - General Adult General Chief complaint: Dizziness Stated complaint: high blood pressure and dizzy Time Seen by Provider: 07/27/22 10:00 Source: patient Mode of arrival: Ambulatory Limitations: no limitations History of Present Illness HPI narrative: Patient is a 77-year-old female. Does have a history of high blood pressure. Is having frequent PVCs. Is currently on metoprolol. Did take her metoprolol this morning. Had a fairly extensive cardiac workup over the last couple days here at the hospital. This is ordered by her primary doctor. She comes to emergency department today for evaluation of high blood pressure. She states that this morning at breakfast she started to not feel very well. Some lightheadedness. Dizziness. No chest pain. No shortness of breath. No lower extremity swelling. She does have a ZIO patch in place. Related Data Home Medications Medication Instructions Recorded Confirmed hydrochlorothiazide 12.5 mg capsule 6.25 mg PO QDAY ##0 12/17/12 metoprolol succinate 50 mg 50 mg PO QDAY ##0 12/17/12 tablet,extended release 24 hr (Toprol XL) atorvastatin 10 mg tablet (Lipitor) 10 mg PO QDAY ##0 06/03/17 Allergies Allergy/AdvReac Type Severity Reaction Status Date / Time Penicillins Allergy Severe ANAPHYLAXIS Verified 02/19/20 11:44 Review of Systems Review of Systems ROS Unobtainable: All systems reviewed & are unremarkable except as noted in HPI and below Patient History Medical History Hypertension Social History Smoking Status: Former smoker Smoking Status: Former smoker alcohol intake frequency: 0-2 drinks per day Substance Use Type: does not use Exam Initial Vital Signs Initial Vital Signs: Vital Signs Temperature 98.4 F 07/27/22 09:58 Pulse Rate 74 07/27/22 09:58 Respiratory Rate 16 07/27/22 09:58 Blood Pressure 232/111 H 07/27/22 09:58 Pulse Oximetry 97 07/27/22 09:58 Oxygen Delivery Method 07/27/22 09:58 Const General: cooperative, comfortable, well developed and No ill appearing HENMT Head: normal to inspection and normocephalic Resp Effort & Inspection: normal respiratory effort Auscultation: clear to auscultation bilaterally Cardio Rate: regular rate Rhythm: regular rhythm GI Inspection: normal to inspection Skin General: no rashes or lesions noted Neuro General: patient alert, patient awake and moves all extremities Extrem General: normal to inspection, capillary refill normal and No edema Psych Appearance: grossly normal and well kempt Course Orders Ordered: ED Orders 07/27/22 09:56 XR chest 1V Stat 07/27/22 10:14 EKG-12 Lead Stat 07/27/22 10:15 Complete Blood Count AUTO DIFF Stat Comprehensive Metabolic Panel Stat Lipase Stat Magnesium Stat Partial Thromboplastin Time Stat Troponin & CK Cardiac Panel Stat 07/27/22 12:12 Troponin & CK Cardiac Panel Stat Vital Signs Vital signs: Vital Signs - 8 hr 07/27/22 09:58 07/27/22 09:59 07/27/22 10:00 Temperature 98.4 F Pulse Rate 74 78 77 Respiratory Rate 16 Blood Pressure 232/111 H Pulse Oximetry 97 94 98 Oxygen Delivery Method Room Air Room Air 07/27/22 10:29 07/27/22 10:29 07/27/22 10:30 Temperature Pulse Rate 70 69 Respiratory Rate 15 19 Blood Pressure 190/101 H Pulse Oximetry 96 96 Oxygen Delivery Method 07/27/22 11:00 07/27/22 11:05 07/27/22 11:05 Temperature Pulse Rate 65 66 Respiratory Rate 20 17 Blood Pressure 155/90 H Pulse Oximetry 96 96 Oxygen Delivery Method 07/27/22 11:30 07/27/22 11:30 07/27/22 12:00 Temperature Pulse Rate 63 63 Respiratory Rate 16 20 Blood Pressure 152/85 H Pulse Oximetry 96 94 Oxygen Delivery Method 07/27/22 12:13 07/27/22 12:13 07/27/22 12:30 Temperature Pulse Rate 61 Respiratory Rate 19 Blood Pressure 139/80 172/79 H Pulse Oximetry 96 Oxygen Delivery Method Room Air 07/27/22 12:30 Temperature Pulse Rate 61 Respiratory Rate 17 Blood Pressure Pulse Oximetry 97 Oxygen Delivery Method Medical Decision Making Medical Records Medical records reviewed: Yes I reviewed the patient's medical records. Lab Data Lab results reviewed: Yes I reviewed the patient's lab results. Result diagrams: 07/27/22 10:15 07/27/22 10:15 Labs: Lab Results 11/30/22 11/30/22 11/30/22 Range/Units 10:15 10:15 10:15 WBC 4.3 L (4.5-11.0) X10^3/uL RBC 4.57 (4.0-5.2) X10^6/uL Hgb 14.3 (12.0-16.0) g/dL Hct 41.6 (36-46) % MCV 91.1 (80-100) fL MCH 31.3 (26-34) PG MCHC 34.3 (30-36) % RDW 13.4 (11.6-14.8) % Plt Count 158 (150-400) X10^3/uL Neut % (Auto) 52.5 (50-75) % Lymph % (Auto) 31.2 (25-40) % [place] % (Auto) 7.2 (3-14) % Eos % (Auto) 8.2 H (2-4) % Baso % (Auto) 0.9 (0-2) % Neut # (Auto) 2200 (6892-5254) /uL Lymph # (Auto) 1300 (7520-8074) /uL [place] # (Auto) 300 (0-900) /uL Eos # (Auto) 300 (0-450) /uL Baso # (Auto) 0 (0-100) /uL APTT 30 (26-36) SECONDS Sodium 140 (137-145) mmol/L Potassium 3.6 (3.4-5.1) mmol/L Chloride 104 (98-107) mmol/L Carbon Dioxide 29 (22-32) mmol/L BUN 16 (7-17) mg/dL Creatinine 0.90 (0.52-1.04) mg/dL Estimated GFR > 60 (>60) mL/min BUN/Creatinine Ratio 17.8 (6-22) Glucose 97 (80-110) mg/dL Calcium 9.5 (8.4-10.2) mg/dL Magnesium 2.1 (1.6-2.3) mg/dL Total Bilirubin 0.5 (0.2-1.3) mg/dL AST 26 (14-36) IU/L ALT 25 (<35) IU/L Alkaline Phosphatase 78 (38-126) U/L Total Creatine Kinase 84 (30-135) U/L CK-MB (CK-2) TNP CK-MB (CK-2) Rel Index TNP Troponin I 0.037 H (0.01-0.034) ng/mL Total Protein 7.4 (6.3-8.2) g/dL Albumin 4.5 (3.5-5.0) g/dL Globulin 2.9 (1.7-4.1) g/dL Albumin/Globulin Ratio 1.6 (1.0-2.8) Lipase 66 (23-300) U/L // Range/Units 12:12 WBC (4.5-11.0) X10^3/uL RBC (4.0-5.2) X10^6/uL Hgb (12.0-16.0) g/dL Hct (36-46) % MCV (80-100) fL MCH (26-34) PG MCHC (30-36) % RDW (11.6-14.8) % Plt Count (150-400) X10^3/uL Neut % (Auto) (50-75) % Lymph % (Auto) (25-40) % [place] % (Auto) (3-14) % Eos % (Auto) (2-4) % Baso % (Auto) (0-2) % Neut # (Auto) (2599-3168) /uL Lymph # (Auto) (9432-7978) /uL [place] # (Auto) (0-900) /uL Eos # (Auto) (0-450) /uL Baso # (Auto) (0-100) /uL APTT (26-36) SECONDS Sodium (137-145) mmol/L Potassium (3.4-5.1) mmol/L Chloride (98-107) mmol/L Carbon Dioxide (22-32) mmol/L BUN (7-17) mg/dL Creatinine (0.52-1.04) mg/dL Estimated GFR (>60) mL/min BUN/Creatinine Ratio (6-22) Glucose (80-110) mg/dL Calcium (8.4-10.2) mg/dL Magnesium (1.6-2.3) mg/dL Total Bilirubin (0.2-1.3) mg/dL AST (14-36) IU/L ALT (<35) IU/L Alkaline Phosphatase (38-126) U/L Total Creatine Kinase 74 (30-135) U/L CK-MB (CK-2) TNP CK-MB (CK-2) Rel Index TNP Troponin I 0.030 (0.01-0.034) ng/mL Total Protein (6.3-8.2) g/dL Albumin (3.5-5.0) g/dL Globulin (1.7-4.1) g/dL Albumin/Globulin Ratio (1.0-2.8) Lipase (23-300) U/L Imaging Data Chest x-ray: Radiologist's Impression: [address] [address] XRay Report Signed Patient: Racheal Raymond MR#: [id number] : 1945 Acct:[id number] Age/Sex: 77 / F Date of Service: 07/27/22 Loc: ED Accession Number: [id number] ?? Procedure: XR chest 1V Ordering Provider: Kaleb Vaz D.O. PROCEDURE:? XR CHEST 1V ? INDICATIONS:? chest pain ? TECHNIQUE:? One view of the chest was acquired.? ? COMPARISON:? [facility], , CHEST 2 VIEW, 05/31/2013, 13:32. ? FINDINGS:? ? Surgical changes and devices:? Pacemaker device is projected over the left upper lung. ? Lungs and pleura:? Lungs are clear.? No pleural effusions or pneumothorax.? ? Mediastinum:? Mediastinal contours appear normal.? Heart size is normal.? ? Bones and chest wall:? No suspicious bony lesions.? Overlying soft tissues appear unremarkable.? ? IMPRESSION:? No acute cardiopulmonary findings. ? ? Dictated by: Cheryl Nunez M.D. on 07/27/2022 at 10:24 ? ? Approved by: Cheryl Nunez M.D. on 07/27/2022 at 10:37?? ECG Data Attestation: I personally reviewed and interpreted this ECG as follows: Interpretation: Sinus rhythm Frequent PVCs Normal QRS Normal QTC No ST T wave changes MDM Narrative Medical decision making narrative: Patient's blood pressure improved without specific intervention here in the ER. Fevers. No chest pain. Was feeling somewhat lightheaded. Review of her record shows that just over the past week she had a normal echocardiogram and also a normal nuclear perfusion study. Initial troponin elevated but 2nd troponin negative. I suspect that this was related to her blood pressure. This is in the setting of no chest pain. I did discuss the findings with the patient's primary doctor. The plan will be is to increase her metoprolol. This very well could help with her frequent PVCs as well. Primary doctor will follow the patient up at the beginning of next week. Had a long discussion with the patient regarding return precautions. She expressed understanding and agreement Discharge Plan Departure Patient Disposition: Home Clinical Impression: Hypertension Instructions: High Blood Pressure Activity Restrictions/Additional Instructions: After discussion with your primary doctor we would like you to take 50 mg of your metoprolol in the morning and 25 mg (1/2 tablet) metoprolol at night. Continue the rest of your medicines as directed. Take your blood pressure at home like we discussed. Your primary doctor would like you to follow-up at the beginning of next week. Return to the emergency department for any new or worsening symptoms. Prescriptions: No Action metoprolol succinate [Toprol XL] 50 MG tablet extended release 24 hr 50 mg PO QDAY Qty: 0 hydrochlorothiazide 12.5 MG capsule 6.25 mg PO QDAY Qty: 0 atorvastatin [Lipitor] 10 MG tablet 10 mg PO QDAY Qty: 0 Referrals: Reba Cordova MD [Primary Care Provider] -
[2022-07-27 10:41] LABS: PTT Partial Thromboplastin Tim 30 SECONDS (26-36)
[2022-07-27 10:43] LABS: Alanine Aminotransferase 25 IU/L (<35); Albumin 4.5 g/dL (3.5-5.0); Albumin Globulin Ratio 1.6 (1.0-2.8); Alkaline Phosphatase 78 U/L (38-126); Aspartate Aminotransferase 26 IU/L (14-36); BUN Creatinine Ratio 17.8 (6-22); Bilirubin Total 0.5 mg/dL (0.2-1.3); Blood Urea Nitrogen 16 mg/dL (7-17); Calcium 9.5 mg/dL (8.4-10.2); Carbon Dioxide 29 mmol/L (22-32); Chloride 104 mmol/L (98-107); Creatine Kinase 84 U/L (30-135); Estimated Glomerular Filt Rate > 60 mL/min (>60); Globulin 2.9 g/dL (1.7-4.1); Glucose 97 mg/dL (80-110); HEMOLYSIS < 15 (0-50); Lipase 66 U/L (23-300); Magnesium 2.1 mg/dL (1.6-2.3); Potassium 3.6 mmol/L (3.4-5.1); Sodium 140 mmol/L (137-145); Total Protein 7.4 g/dL (6.3-8.2)
[2022-07-27 10:53] LABS: Troponin I 0.037 ng/mL (0.01-0.034)
[2022-07-27 12:31] LABS: Creatine Kinase 74 U/L (30-135)
== END 2022-07-27 13:34 | disposition home or self-care (01) ==
PROVIDERS: Emergency Provider Emergency Medicine; PCP Family Medicine
DX: I10 Essential (primary) hypertension (principal); R07.9 Chest pain, unspecified
CPT/HCPCS: 36415; 71045; 80053; 82550; 83690; 83735; 84484; 85025; 85730; 93005; 99283; 99284

== ENCOUNTER → 2022-08-12 09:24 | Outpatient (CLI) | payer MEDICARE, OTHER, SELFPAY ==
--- NOTE | 2022-08-12 | DI.MG.S_ITS ---
BILATERAL DIGITAL SCREENING MAMMOGRAM 3D/2D WITH CAD: 08/12/2022 CLINICAL: Routine screening. Family history of breast cancer. Comparison is made to exams dated: 06/14/2021 mammogram, 02/02/2018 mammogram, and 02/12/2015 mammogram - [facility]. Both breasts are heterogeneously dense, which may obscure small masses (category c / 51-75% glandular tissue). Current study was also evaluated with a Computer Aided Detection (CAD) system. There is a possible asymmetry in the left breast at 11 o'clock middle depth. This is more prominent. No other significant masses, calcifications, or other findings are seen in either breast. IMPRESSION: INCOMPLETE: NEEDS ADDITIONAL IMAGING EVALUATION The possible asymmetry in the left breast is indeterminate. Additional views with possible ultrasound are recommended. Based on Tyrer-Cuzick model (a risk assessment model), the patient's lifetime risk is 22.5% and her 10 year risk is 0.0%. If a patient has an elevated risk, a more comprehensive evaluation should be considered and/or a referral to a genetic counselor. The [place] [employer], [employer], and NCCN Guidelines advise the consideration of Breast MRI as an adjunct to screening mammography in patients whose Lifetime risk to develop breast cancer is 20% or higher. This exam was interpreted at Station ID: [id number]. NOTE: For mammograms, a report in lay terms will be sent to the patient. Approximately 15% of breast malignancies will not be visualized mammographically. In the management of a palpable breast mass, a negative mammogram must not discourage biopsy of a clinically suspicious lesion. Electronically Signed By: Augusto Hernandez M.D., jr/jennifer:08/12/2022 12:08:28 letter sent: Additional Imaging Needed ACR BI-RADS Category 0: Incomplete 3340F
== END ==
PROVIDERS: PCP Family Medicine; Referring Provider Family Medicine; Visit Provider Family Medicine
DX: Z12.31 Encounter for screening mammogram for malignant neoplasm of breast (principal); Z80.3 Family history of malignant neoplasm of breast
CPT/HCPCS: 77063; 77067

== ENCOUNTER → 2022-09-20 09:57 | Outpatient (CLI) | payer MEDICARE, OTHER, SELFPAY ==
--- NOTE | 2022-09-20 | DI.MG.S_ITS ---
UNILATERAL LEFT DIGITAL DIAGNOSTIC MAMMOGRAM 3D/2D WITH ADDITIONAL VIEWS: 09/20/2022 CLINICAL: Additional evaluation requested from prior study. Comparison is made to exams dated: 08/12/2022 mammogram, 08/11/2021 mammogram, 06/14/2021 mammogram, and 02/02/2018 mammogram - [facility]. The left breast is heterogeneously dense, which may obscure small masses (category c / 51-75% glandular tissue). There is a possible asymmetry in the left breast at 11 o'clock middle depth. This is slightly more prominent but may be due to post surgical scarring. No other significant masses or calcifications are seen in the breast. IMPRESSION: INCOMPLETE: NEEDS ADDITIONAL IMAGING EVALUATION The possible asymmetry in the left breast has a differential diagnosis of dense fibroglandular tissue or post-surgical scarring and is indeterminate. An ultrasound is recommended for further evaluation and is scheduled to immediately follow this examination. Based on Tyrer-Cuzick model (a risk assessment model), the patient's lifetime risk is 22.5% and her 10 year risk is 0.0%. If a patient has an elevated risk, a more comprehensive evaluation should be considered and/or a referral to a genetic counselor. The [place] [employer], [employer], and NCCN Guidelines advise the consideration of Breast MRI as an adjunct to screening mammography in patients whose Lifetime risk to develop breast cancer is 20% or higher. This exam was interpreted at Station ID: [id number]. NOTE: For mammograms, a report in lay terms will be sent to the patient. Approximately 15% of breast malignancies will not be visualized mammographically. In the management of a palpable breast mass, a negative mammogram must not discourage biopsy of a clinically suspicious lesion. Electronically Signed By: Ayo Loera M.D. aty/:09/20/2022 11:56:24 ACR BI-RADS Category 0: Incomplete 3340F
--- NOTE | 2022-09-20 | DI.US.S_ITS ---
ULTRASOUND OF LEFT BREAST: 09/20/2022 CLINICAL: Patient returns today to evaluate an asymmetry in the left breast. Comparison is made to exams dated: 09/20/2022 mammogram - [facility], 09/27/2021 localization, 09/27/2021 specimen - [facility], 08/11/2021 mammogram, 08/11/2021 ultrasound biopsy, and 07/27/2021 ultrasound - [facility]. Color flow and real-time ultrasound of the left breast were performed. Rosa scale images of the real-time examination were reviewed. There are post-operative findings noted in the upper inner quadrant without a definite mass or abnormal vascularity. There is a 0.3 cm x 0.2 cm x 0.3 cm oval cyst in the left breast at 10 o'clock posterior depth 5 cm from the nipple. This oval cyst is hypoechoic. This correlates as an incidental finding. Color flow imaging demonstrates that there is no vascularity present. IMPRESSION: PROBABLY BENIGN The 0.3 cm x 0.2 cm x 0.3 cm oval cyst in the left breast is consistent with a complicated cyst and is probably benign. Mammographic findings in the upper inner quadrant likely related to fibroglandular tissue and post surgical changes and are probably benign. A follow-up bilateral mammogram and left ultrasound in 6 months is recommended to demonstrate stability. Findings and recommendations were conveyed to the patient during today's evaluation. This exam was interpreted at Station ID: [id number]. Electronically Signed By: Ayo Loera M.D. aty/:09/20/2022 12:02:36 letter sent: Followup Recommended Ultrasound BI-RADS: 3 Probably benign
== END ==
PROVIDERS: PCP Family Medicine; Referring Provider Family Medicine; Visit Provider Family Medicine
DX: R92.8 Other abnormal and inconclusive findings on diagnostic imaging of breast (principal); N60.02 Solitary cyst of left breast
CPT/HCPCS: 76642; 77065; G0279

== ENCOUNTER → 2022-11-10 12:46 | Outpatient (CLI) | payer MEDICARE, OTHER, SELFPAY ==
[2022-11-10 13:45] LABS: Alanine Aminotransferase 31 IU/L (<35); Albumin 4.5 g/dL (3.5-5.0); Albumin Globulin Ratio 1.8 (1.0-2.8); Alkaline Phosphatase 79 U/L (38-126); Aspartate Aminotransferase 30 IU/L (14-36); BUN Creatinine Ratio 25.3 (6-22); Bilirubin Total 0.6 mg/dL (0.2-1.3); Blood Urea Nitrogen 21 mg/dL (7-17); Calcium 9.5 mg/dL (8.4-10.2); Carbon Dioxide 29 mmol/L (22-32); Chloride 103 mmol/L (98-107); Cholesterol 200 mg/dL (140-199); Estimated Glomerular Filt Rate > 60 mL/min (>60); Globulin 2.5 g/dL (1.7-4.1); Glucose 93 mg/dL (80-110); HDL Cholesterol 71 mg/dL (40-60); HEMOLYSIS < 15 (0-50); LDL Cholesterol Calculated 88 mg/dL (<100); Potassium 3.8 mmol/L (3.4-5.1); Sodium 139 mmol/L (137-145); Triglycerides 203 mg/dL (35-150)
[2022-11-10 14:46] LABS: Thyroid Stimulating Hormone 1.52 uIU/mL (0.47-4.68)
== END ==
PROVIDERS: PCP Family Medicine; Referring Provider Family Medicine; Visit Provider Family Medicine
DX: E78.5 Hyperlipidemia, unspecified (principal); I10 Essential (primary) hypertension; R00.0 Tachycardia, unspecified
CPT/HCPCS: 36415; 80053; 80061; 84443

== ENCOUNTER → 2023-04-06 09:50 | Outpatient (CLI) | payer MEDICARE, OTHER, SELFPAY ==
--- NOTE | 2023-04-06 | DI.US.S_ITS ---
LIMITED ULTRASOUND OF LEFT BREAST: 04/06/2023 CLINICAL: Left breast follow up. Comparison is made to exams dated: 09/20/2022 ultrasound, 04/06/2023 mammogram, 09/20/2022 mammogram, 08/12/2022 mammogram - [facility], 09/27/2021 localization, and 09/27/2021 specimen - [facility]. Color flow ultrasound of the left breast 3 o'clock and 10-11 o'clock regions was performed. Rosa scale images of the real-time examination were reviewed. The left breast has stable post-operative findings 11:00 middle depth. The 0.3 cm incidental oval cyst in the left breast at 10:30 posterior depth 5 cm from the nipple is no longer seen. No sonographic finding to correspond to the patient's mammographic abnormality in the lateral left breast. IMPRESSION: PROBABLY BENIGN Interval resolution of tiny complicated left breast cyst. The post surgical area in the left breast is otherwise stable without new suspicious features. There is no sonographic abnormality seen in the left breast to correspond with the mammography finding at 3 o'clock. A follow-up left mammogram and an ultrasound in 6 months is recommended to demonstrate stability. The patient will be due for bilateral mammograms at that same visit. Findings and recommendations were conveyed to the patient at time of exam. This exam was interpreted at Station ID: [id number]. Electronically Signed By: Jenn londono/:04/06/2023 11:14:46 letter sent: Followup Recommended Ultrasound BI-RADS: 3 Probably benign
--- NOTE | 2023-04-06 | DI.MG.S_ITS ---
UNILATERAL LEFT DIGITAL DIAGNOSTIC MAMMOGRAM 3D/2D SHORT-TERM FOLLOW-UP: 04/06/2023 CLINICAL: Short term follow up for the left breast. Comparison is made to exams dated: 09/20/2022 mammogram, 08/12/2022 mammogram, 07/14/2021 breast MRI, 06/14/2021 mammogram, and 02/02/2018 mammogram - [facility]. The left breast is heterogeneously dense, which may obscure small masses (category c / 51-75% glandular tissue). There is an asymmetry in the left breast at 11 o'clock middle depth which has not significantly changed, probably post operative changes. There also is a possible new 6 mm oval asymmetry with an obscured and circumscribed margin in the left breast at 3 o'clock anterior depth. No other significant masses or calcifications are seen in the breast. IMPRESSION: INCOMPLETE: NEEDS ADDITIONAL IMAGING EVALUATION The asymmetry in the left breast at 11 o'clock middle depth is stable, has a differential diagnosis of fibroglandular tissue or a post-surgical scar. An ultrasound is recommended to document stability. This was performed immediately following this exam. The possible new 6 mm oval asymmetry in the left breast at 3 o'clock anterior depth is possibly a cyst but remains indeterminate. An ultrasound is recommended. This was performed immediately following this exam. Based on Tyrer-Cuzick model (a risk assessment model), the patient's lifetime risk is 22.5% and her 10 year risk is 0.0%. If a patient has an elevated risk, a more comprehensive evaluation should be considered and/or a referral to a genetic counselor. The [place] [employer], [employer], and NCCN Guidelines advise the consideration of Breast MRI as an adjunct to screening mammography in patients whose Lifetime risk to develop breast cancer is 20% or higher. This exam was interpreted at Station ID: [id number]. NOTE: For mammograms, a report in lay terms will be sent to the patient. Approximately 15% of breast malignancies will not be visualized mammographically. In the management of a palpable breast mass, a negative mammogram must not discourage biopsy of a clinically suspicious lesion. Electronically Signed By: Jenn londono/:04/06/2023 10:50:23 ACR BI-RADS Category 0: Incomplete [id number]
== END ==
PROVIDERS: PCP Family Medicine; Referring Provider Family Medicine; Visit Provider Family Medicine
DX: N60.02 Solitary cyst of left breast (principal); R92.8 Other abnormal and inconclusive findings on diagnostic imaging of breast
CPT/HCPCS: 76642; 77065; G0279

== ENCOUNTER → 2023-11-08 08:41 | Outpatient (CLI) | payer MEDICARE, OTHER, SELFPAY ==
--- NOTE | 2023-11-08 08:42 | DI.MG.S_ITS ---
BILATERAL DIGITAL DIAGNOSTIC MAMMOGRAM 3D/2D: 11/08/2023 CLINICAL: Patient returns for a 6 month follow up of the left breast, due for bilateral exam. Comparison is made to exams dated: 04/06/2023 ultrasound, 04/06/2023 mammogram, 09/20/2022 ultrasound, 09/20/2022 mammogram, 08/12/2022 mammogram, and 08/11/2021 ultrasound [facility]. Both breasts are heterogeneously dense, which may obscure small masses (category c / 51-75% glandular tissue). There is a possible asymmetry in the left breast at 11 o'clock middle depth. This is not significantly changed and was not seen on the prior ultrasound. There also is a 6 mm oval asymmetry with an obscured and circumscribed margin in the left breast at 3 o'clock anterior depth. This is more prominent. No other significant masses, calcifications, or other findings are seen in either breast. IMPRESSION: INCOMPLETE: NEEDS ADDITIONAL IMAGING EVALUATION The possible asymmetry in the left breast at 11 o'clock middle depth resembles fibroglandular tissue or a post-surgical scar and is indeterminate. The 6 mm oval asymmetry in the left breast at 3 o'clock anterior depth resembles a cyst and is indeterminate. A targeted ultrasound is recommended and will immediately follow. Based on Tyrer-Cuzick model (a risk assessment model), the patient's lifetime risk is 20.7% and her 10 year risk is 0.0%. If a patient has an elevated risk, a more comprehensive evaluation should be considered and/or a referral to a genetic counselor. The [place] [employer], [employer] [employer], and NCCN Guidelines advise the consideration of Breast MRI as an adjunct to screening mammography in patients whose Lifetime risk to develop breast cancer is 20% or higher. This exam was interpreted at Station ID: [id number]. NOTE: For mammograms, a report in lay terms will be sent to the patient. Approximately 15% of breast malignancies will not be visualized mammographically. In the management of a palpable breast mass, a negative mammogram must not discourage biopsy of a clinically suspicious lesion. Electronically Signed By: Kofi Calderon M.D. [facility]/:11/08/2023 09:31:03 ACR BI-RADS Category 0: Incomplete 3340F
--- NOTE | 2023-11-08 08:43 | DI.US.S_ITS ---
LIMITED ULTRASOUND OF LEFT BREAST AND AXILLA: 11/08/2023 CLINICAL: 6 month follow-up. Comparison is made to exams dated: 11/08/2023 mammogram, 04/06/2023 ultrasound, 04/06/2023 mammogram, 09/20/2022 ultrasound, and 09/20/2022 mammogram - [facility]. Color flow and real-time ultrasound of the left breast 4 o'clock, 11 o'clock, and axilla regions were performed. Rosa scale images of the real-time examination were reviewed. There is a 1.1 cm x 0.7 cm x 0.6 cm mass in the left breast at 4 o'clock anterior depth 4 cm from the nipple. This mass is hypoechoic with posterior acoustic shadowing. This correlates with mammography findings. Color flow imaging demonstrates that there is vascularity present. No sonographic abnormality in the region of the possible asymmetry in the left breast at 11 o'clock middle depth. No significant abnormalities were seen sonographically in the left axilla. IMPRESSION: SUSPICIOUS OF MALIGNANCY The 1.1 cm x 0.7 cm x 0.6 cm mass in the left breast at 4 o'clock anterior depth is at a moderate suspicion for malignancy. An ultrasound guided biopsy is recommended. No enlarged left axillary lymph nodes. Exam findings were discussed with the patient by Dr. Thibodeaux. Recommend follow-up mammogram in 6 months of the left breast for the possible asymmetry in the upper medial quadrant. This exam was interpreted at Station ID: [id number]. Electronically Signed By: Kofi Calderon M.D. slc/:11/08/2023 10:17:49 letter sent: Biopsy Required Ultrasound BI-RADS: 4b Moderate suspicion of malignancy
== END ==
LOC: MAMMO 08:42
PROVIDERS: PCP Family Medicine; Referring Provider Family Medicine; Visit Provider Family Medicine
DX: R92.8 Other abnormal and inconclusive findings on diagnostic imaging of breast; N63.23 Unspecified lump in the left breast, lower outer quadrant; N64.4 Mastodynia; R92.333 Mammographic heterogeneous density, bilateral breasts
CPT/HCPCS: 76642; 77066; G0279

== ENCOUNTER → 2023-11-29 14:09 | Outpatient (CLI) | payer MEDICARE, OTHER, SELFPAY ==
--- NOTE | 2023-11-29 | PATH_ITS ---
[facility] Accession Number: [id number] No. of containers..01 Tissue . 01 Material submitted: . breast - LEFT BREAST MASS 4:00, 4CMFN . 01 Clinical history: . 4CMFN . 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 Combined total [place] histologic score: 6 to 7 out of 9 possible (tubule formation 2 to 3 out of 3, nuclear pleomorphism 2 out 3, mitotic index 2 out of 3). Overall grade: Grade 2 (moderately differentiated). In situ carcinoma: Present, ductal type, predominantly solid pattern intermediate to high nuclear grade, with focal comedo necrosis. Lymphovascular invasion: Not definitely seen, please see microscopic description. Microcalcifications: Rare microcalcification present within invasive carcinoma. Greatest linear extent of invasive carcinoma: 9.5 mm, as measured from the glass slide. Predictive markers: Estrogen and progesterone receptors positive. HER2 negative for expression by immunohistochemistry (please see microscopic description for details). [facility] 12/01/2023 1457 Local . 01 Comment: The results of the case are verbally provided by Dr. Daugherty to [employer], Rhiannon, on 12/01/2023 at 2:15 p.m. . As part of ongoing quality assurance group leader, selective slides have been reviewed by Dr. Berta Harkins, who agrees with the interpretation. . 01 Electronically signed: . Brenda Daugherty MD, Pathologist NPI- [id number] . 01 Gross description: . Received is one formalin-filled container labeled with the patient's name and designated left breast mass 4 o'clock 4 cm FN. The sample is received with plastic filter in container and sample loose in container, and consists of multiple yellow-lu pieces of tissue which range in size from 0.2 x 0.2 x 0.2 cm to 1.5 x 0.3 x 0.3 cm. All fragments are totally submitted in cassette A1. . Possible collection date and time per requisition 11/29/2023 at 1504 hours, total fixation time approximately 12 hours. ([id number]) /SHANIKA 11/30/2023 0549 Local . 01 Microscopic: . Microscopic examination of the breast biopsies (left breast mass) reveals infiltrating tumor cells forming predominantly solid nests and fewer acini. . Immunostains are performed with the following results: E-cadherin and beta-catenin show strong positivity on the tumor cells, supporting ductal differentiation. GATA3 is strong positive, supporting breast origin, p63 and myosin immunostains support infiltrating carcinoma and also foci of carcinoma in situ, and D2-40 staining pattern does not definitely support lymphovascular invasion. . Estrogen Receptor: Positive, intermediate intensity, approximately 90% on the invasive tumor cells. . Progesterone Receptor: Positive, intermediate intensity, 50-60%, on the invasive tumor cells. . HER2: Negative (1+). . . Internal controls for ER and [place] are positive. Cold ischemic time is <5 minutes. The scoring criteria for breast biomarkers by immunohistochemistry is based on the ASCO/CAP guidelines (Kyle AC et al, J Clin Oncol: 2017Mar 06;36(20):3982-9070 and Jamar POLO et al, Arch Pathol Lab Med: 2009;134(6):907-22). Deparaffinized sections of formalin fixed tissue (along with appropriate positive controls) are incubated with the above antibody(s). Using the automated [place] stainer, tissue is incubated with the designated antibody which is then localized by a non-biotin, dual polymer detection system. The external controls are reviewed for appropriate reactivity and found to be adequate. Results on the target cell population are indicated above. These tests have not been validated on decalcified or alcohol-based fixed tissue. This test was developed and its performance characteristics determined by [employer]. It has not been cleared or approved by the U.S. Food and Drug Administration. The FDA has determined that such clearance or approval is not necessary. This test is used for clinical purposes. It should not be regarded as investigational or for research. . * This test was developed and its performance characteristics determined by [facility]. It has not been cleared or approved by the U.S. Food and Drug Administration. The FDA has determined that such clearance or approval is not necessary. This test is used for clinical purposes. It should not be regarded as investigational or for research. . 01 Pathologist provided ICD-10: C50.812 . 01 CPT . 823789, S76985, Q98752, 032481, 195424, [id number] Performed at: 01 [facility] [address] [place] [address] [id number] MD Xu Yang MD Phone: [phone]
--- NOTE | 2023-11-29 14:11 | DI.MG.S_ITS ---
UNILATERAL LEFT DIGITAL DIAGNOSTIC MAMMOGRAM 3D/2D POST-PROCEDURE IMAGING FOR MARKER PLACEMENT: 11/29/2023 CLINICAL: Post clip. Comparison is made to exams dated: 11/08/2023 ultrasound, 11/08/2023 mammogram, 04/06/2023 ultrasound, 04/06/2023 mammogram, and 09/20/2022 mammogram - [facility]. The left breast is heterogeneously dense, which may obscure small masses (category c / 51-75% glandular tissue). There is a marker clip in the appropriate position in the left breast at 4 o'clock middle depth at the biopsy site. IMPRESSION: POST PROCEDURE MAMMOGRAM FOR MARKER PLACEMENT There was a successful marker clip placement in the left breast middle depth. This exam was interpreted at Station ID: [id number]. Electronically Signed By: Kofi Calderon M.D. slc/:11/29/2023 15:21:53 ACR BI-RADS Category Post-procedure mammogram for marker placement
--- NOTE | 2023-11-29 14:12 | DI.US.S_ITS ---
ULTRASOUND GUIDED BIOPSY LEFT BREAST WITH MARKING DEVICE INSERTED AND POST DIGITAL MAMMOGRAPHIC IMAGIN11/29/2023 CLINICAL: Left breast mass. PATIENT CONSENT: Risks (minor bleeding, infection, vasovagal reaction and repeat procedure), benefits and alternatives were explained to the patient and written informed consent was obtained. Correlation is made to exams dated: 11/29/2023 mammogram, 11/08/2023 ultrasound, 11/08/2023 mammogram, 04/06/2023 ultrasound, 04/06/2023 mammogram, and 09/20/2022 ultrasound - [facility]. An ultrasound guided biopsy using real-time ultrasound was performed for the 1.1 cm x 0.7 cm x 0.6 cm irregular shaped mass located in the left breast at 4 o'clock anterior depth 4 cm from the nipple. This was described on the previous ultrasound report. The skin was prepped in the usual manner. Local anesthetic was administered to the access site. A skin phuong was made in the breast. The abnormality was approached from the lateral aspect. A 14 gauge biopsy needle was placed adjacent to the abnormality under ultrasound guidance. Once the needle was documented to be in the correct location, 5 cores were obtained using [employer] Elevation. A brie clip was inserted into the biopsy cavity. A skin adhesive and a sterile dressing were applied to the access site. Post procedure digital mammographic imaging demonstrates the location device at the targeted area. The specimens were sent to the laboratory for pathological analysis. IMPRESSION: ULTRASOUND GUIDED BIOPSY MALIGNANT Ultrasound guided biopsy of the 1.1 cm x 0.7 cm x 0.6 cm mass in the left breast at 4 o'clock anterior depth 4 cm from the nipple was successful with no apparent post procedure complications. Pathology indicates malignant invasive ductal carcinoma (ID). Pathology results are concordant with imaging findings. A surgical/oncologic consultation is recommended. This exam was interpreted at Station ID: [id number]. Kofi Calderon M.D. [facility]/:12/05/2023 09:30:01
== END ==
LOC: US 14:10
PROVIDERS: PCP Family Medicine; Referring Provider Family Medicine; Visit Provider Family Medicine
DX: C50.512 Malignant neoplasm of lower-outer quadrant of left female breast (principal); Z17.0 Estrogen receptor positive status [ER+]
CPT/HCPCS: 19083; 77065

== ENCOUNTER → 2024-01-02 07:51 | Outpatient (CLI) | payer MEDICARE, OTHER, SELFPAY ==
--- NOTE | 2024-01-02 07:53 | DI.NM.S_ITS ---
PROCEDURE: NM SENTINEL NODE INJECT ONLY RADIOPHARMACEUTICAL: 0.5-1.0 mCi Millipore filtered Tc-99m sulfur colloid. INDICATIONS: LEFT BREAST CANCER COMPARISON: [facility], , MM DIAGNOSTIC MAMMO UNILAT LT2D, 11/29/2023, 15:00. [facility], US, US BX BREAST PERC W VAC DEVICE, 11/29/2023, 14:16. PROCEDURE: The area around the nipple was prepped and draped in a sterile fashion. Tc-99m sulfur colloid was injected intra-dermally around the outer edge of the areola in the left breast breast. No image was obtained. IMPRESSION: Administration of radiotracer into the left breast breast periareolar region for intra-operative sentinel lymph node localization. Dictated by: Sony Carrasquillo M.D. on 01/02/2024 at 10:27 Approved by: Sony Carrasquillo M.D. on 01/02/2024 at 10:31
== END ==
PROVIDERS: PCP Family Medicine; Referring Provider Surgery; Visit Provider Surgery
DX: C50.912 Malignant neoplasm of unspecified site of left female breast (principal)
CPT/HCPCS: 38792; A9541

== ENCOUNTER 2024-01-02 07:55 | Day surgery (SDC) | payer MEDICARE, OTHER, SELFPAY ==
[2023-12-26 10:54] VITALS: BMI 23.6
--- NOTE | 2024-01-02 | PATH_ITS ---
[facility] Accession Number: [id number] No. of containers..03 Tissue . 01 Material submitted: . PART A: breast - LEFT BREAST MASS PART B: breast - LEFT BREAST PART C: body - LEFT BREAST SENTINAL NODE . 01 Clinical history: . A: MARGIN MARKER: GREEN (ANTERIOR), BLUE (INFERIOR), ORANGE (LATERAL), YELLOW (MEDIAL), BLACK.. B: NEW INFERIOR MARGIN . 01 Diagnosis: A. LEFT BREAST MASS, EXCISION: Invasive (ductal carcinoma), grade 2 of 3 ([place] combined histologic grade, total score 7/9) with the following features: 1. Tumor size (invasive component): 2.3 cm by microscopic measurement; see comment. 2. Nuclear pleomorphism: Intermediate. (2/3) 3. Mitotic count: Intermediate. (2/3) 4. Tubular differentiation: Little or none. (3/3). 5. Ductal carcinoma in situ: Present, with the following features: - High grade, with punctate necrosis. - Extent: Present on multiple slides (corresponding to tissue slices 1-5), spanning approximately 28 mm. 6. Calcifications: Present, in association with benign tissue and ductal carcinoma in situ. 7. Lymphatic space invasion: Not definitively identified. 8. Resection margins: - Invasive carcinoma: * Positive (tumor at ink/cautery i.e. transected) at the anterior margin (A2, slice 1). * More than 2 mm from all remaining margins. - DCIS: * At ink/cautery: inferior margin (A9). * Less than 2 mm away: from inferior margin (A5, A7, A9, A10), from junction between inferior and medial (A4 and A6). * 2 mm away: from junction of anterior and inferior margins (A1), and from lateral margin (A5). * More than 2 mm from all remaining margins. 9. Prognostic markers (performed on prior biopsy), and reported as follows: - Estrogen receptor status: Positive. - Progesterone receptor status: Positive. - HER2: Negative; see comment. 10. Axillary lymph node status: One sentinel lymph node (see part B) removed and is negative for carcinoma. 11. Nonaxillary lymph node status: None removed or found within the specimen. 12. Additional findings: - Skin, nipple, and skeletal muscle are not present for evaluation. - Biopsy site clip/changes are seen. 13. Pathologic stage: pT2 pN0(sn). 14. Best tumor block for future studies: A3. . B. LEFT BREAST, NEW INFERIOR MARGIN, EXCISION: Residual high-grade ductal carcinoma in situ. Extent: 13 mm. Inked/Cauterized tissue edges: - One small focus likely at inked/cauterized tissue edge (B3); see comment. - 3 foci of 2-3 mm linear span of DCIS in 3 consecutive slices less than 2 mm from inked/cauterized tissue edge (B2 and B3). Negative for invasive malignancy. . C. LEFT BREAST SENTINEL LYMPH NODES, DISSECTION: One lymph node, negative for malignancy (0/1). . COMMENT: * Size of carcinoma: based on likely full involvement of length of at least 4 slices, each about 0.58 cm. * Her2 IHC is repeated on A3 and results will be reported in an addendum. * In part B, residual DCIS is seen close to an inked/cauterized edge and focally very close (i.e. one fibroblast away) in B3 and is likely cauterized over a linear span of 1 mm. This edge is not orientable. Clinical correlation is necessary to determiner whether this edge represents the new margin. [facility] 01/15/2024 1116 Local . 01 Electronically signed: . Lynnette Glez MD, Pathologist NPI- [id number] . 01 Gross description: . A. Received: In formalin with two identifiers and left breast. Specimen: A previously inked left lumpectomy. Weight: 25 grams. Measurement: 4.6 cm from anterior to posterior, 4.2 cm from medial to lateral, 2.5 cm from superior to inferior. Skin ellipse: Absent. Wire: Present, penetrating superiorly and terminating inferiorly (from red to blue margins). Margins: Inked by the surgeon using the margin marker color scheme as follows: Anterior green, inferior blue, lateral orange, medial yellow, posterior black, superior red. Inking reinforced at the bench. Note: The green ink has run into the yellow ink within the container. Sliced: From anterior to posterior into eight slices. Lesion: One lesion identified. Description: An ill-defined pink-lu, firm lesion. Size: 1.6 cm from medial to lateral, 0.9 cm from anterior to posterior, 0.7 cm from superior to inferior. Slices involved: 2-4. Biopsy site: A cylindrical biopsy clip is found within slice 3. Distance to margins: 0.4 cm from the green ink, 0.9 cm from the orange ink, 0.6 cm from the blue ink, 0.7 cm from the yellow ink, and greater than 1 cm from all remaining margins. Other: The remaining cut surfaces are yellow to white fibroadipose tissue with white fibrous tissue occupying approximately 10% of the cut surface. No additional lesions are identified. Fixation: The specimen was removed on 01/02/2024, time not provided, cold ischemic time cannot be calculated, total fixation time is approximately 53 hours. [place] sections are submitted as follows: A1-A2: Entire slice 1 green margin perpendicular. No visible lesion. A3-A4: Composite slice 2. A5-A6: Composite slice 3. A7-A8: Composite slice 4. A9-A10: Composite slice 5, no lesion. A11: [place] slice 8 black margin perpendicular. B. Received in formalin with two identifiers and left breast new inferior margin, is an unoriented yellow lobulated soft tissue fragment weighing 7 grams and measuring 4.5 x 2.4 x 1.0 cm. The slightly concave surface is stained blue and inked blue at the bench, while the slightly convex surface is inked green. Serially sectioned into 10 slices to reveal a yellow, soft cut surface with no lesions identified. White fibrous tissue occupies approximately 10% of the cut surface. Fixation: The specimen was removed on 01/02/2024, time not provided, cold ischemic time cannot be calculated, total fixation time is approximately 53 hours. Submitted entirely as follows: B1: Slice 1 perpendicular. B2-B5: Slices 2-9, sequentially. B6: Slice 10 perpendicular. C. Received in formalin with two identifiers and sentinel node, is a lu lymph node candidate with a small amount of attached adipose measuring 1.7 x 1.5 x 0.7 cm. A portion of the cut surface has dark trabeculations across an area measuring 0.7 x 0.5 x 0.3 cm. Submitted entirely in cassettes C1-C2. ([id number]) /SHANIKA 01/15/2024 1110 Local . 01 Microscopic: . Immunohistochemical studies are performed on blocks A2, A9, and C1 and C2 in order to evaluate areas of interest. . Block A2: P63 and smooth muscle myosin are negative within areas of interest. JULIANA in block A2 highlights invasive carcinoma present at the inked margin. . Extensive perineural invasion is seen. . Block A9: D2-40 does not demonstrate immunoreactivity around areas of invasive carcinoma excluding definite evidence of lymphovascular space invasion. . Block C1 and C2: JULIANA is negative in sections of lymph node. . * This test was developed and its performance characteristics determined by [employer]. It has not been cleared or approved by the U.S. Food and Drug Administration. The FDA has determined that such clearance or approval is not necessary. This test is used for clinical purposes. It should not be regarded as investigational or for research. . 01 Pathologist provided ICD-10: C50.912 . 01 CPT . 167327, 191259, 746087, F78769, [id number] Specimen Comment: A courtesy copy of this report has been sent to [phone] Performed at: 01 [facility] [address] [place] [address] [address] [facility], [place], [place] [id number] MD Xu Yang MD Phone: [phone]
--- NOTE | 2024-01-02 | DI.MG.S_ITS ---
MAMMOGRAPHY GUIDED WIRE LOCALIZATION LEFT BREAST WITH POST MAMMOGRAPHIC IMAGIN01/02/2024 CLINICAL: Left breast wire localization. Correlation is made to exams dated: 11/29/2023 mammogram, 11/08/2023 mammogram, 04/06/2023 mammogram, and 09/20/2022 mammogram - [facility]. A wire localization using mammography guidance was performed for the marker clip located in the left breast at 2 o'clock middle depth. This was described on the previous mammography report. The skin was prepped in the usual manner. Local anesthetic was administered to the access site. The localization was approached from the caudocranial aspect. A J-hook wire was inserted into the targeted area under mammography guidance. Post placement mammographic imaging was obtained. IMPRESSION: WIRE LOCALIZATION Wire localization for the marker clip in the left breast at 2 o'clock middle depth was successful. Future imaging is recommended as follows: 05/10/2024 follow-up left mammogram. This exam was interpreted at Station ID: [id number]. Aba campos/penannmarie:01/02/2024 11:28:44
--- NOTE | 2024-01-02 | DI.MG.S_ITS ---
SPECIMEN: 01/02/2024 CLINICAL: Breast cancer. Correlation is made to exams dated: 01/02/2024 localization, 11/29/2023 ultrasound biopsy, 11/29/2023 mammogram, and 11/08/2023 [facility]. Left breast lumpectomy specimen contains the biopsy clip. IMPRESSION: SPECIMEN Left breast lumpectomy specimen contains the biopsy clip. This exam was interpreted at Station ID: [id number]. Kofi Calderon M.D. slc/:01/02/2024 17:36:35
[2024-01-02 08:14] VITALS: BP 165/95; PULSE 64; RESP 18; TEMP 36.4; O2SAT 100; BMI 23.6
[2024-01-02] MEDS: LACTATED RINGERS 1,000 ML 42 ML IV ×2 (08:22→13:59)
[2024-01-02] MEDS: ACETAMINOPHEN 325 MG TABLET 975 MG PO (08:38)
--- NOTE | 2024-01-02 12:13 | PM.PREOP ---
Pre-operative Note COVID-19 COVID-19 status: Not tested Interval Note History & Physical reviewed/Exam performed by Physician: Yes Changes to H&P: No ASA Class (for procedural sedation): II
--- NOTE | 2024-01-02 13:24 | SUR.OPER ---
Supine on padded OR bed, head on pillow, arms secured on padded arm boards at <90 degrees abduction, legs uncrossed, safety belt at thigh, tape over blanket over lower legs.
[2024-01-02] MEDS: BUPIVACAINE 0.5% W/ EPI (PF) 30 ML VIAL INJ (13:39)
[2024-01-02] MEDS: METHYLENE BLUE 50 MG/10 ML VIAL INJ (13:41)
[2024-01-02] MEDS: BACITRACIN OINT 0.9 GM PCKT 1 APPLIC TOP (14:17)
--- NOTE | 2024-01-02 14:26 | PM.OP.1 ---
Operative Date/Time/Diagnoses Date of procedure: 01/02/24 Time of procedure: 14:26 Pre-op diagnosis: Left breast cancer Post-op diagnosis: same Procedure & Clinicians Procedure: Wire localization left breast lumpectomy [place] lymph node biopsy Same procedure as scheduled: Yes Surgeon: Zhao Alicea Sql Application Developer: Aamir Hernandez Anesthesia Type: General Operative Notes Procedure in detail: The patient had injection of lymphoscintigraphy as well as placement of a localizing wire into the left breast at Radiology prior to surgery. The patient was brought to the operating room, placed on the table in the supine position, general endotracheal anesthesia was induced. Arms were abducted on arm boards. 5 mL of 50% methylene blue were injected near the left areolar border. The left breast and axilla were prepped and draped in the usual fashion. A time-out was performed. Additional massage was performed to spread the methylene blue. We started with the lumpectomy. We made a 7 cm incision over the left breast at the 3 o'clock position. We created flaps superior and inferior to the incision and then dissected down to the lateral chest wall keeping the mass in the wire within the center of the specimen. The wire was pulled through the skin into. We reached serratus anterior musculature at the deepest aspect of the dissection. During extraction of the specimen the distal end of the wire could be palpated at the inferior aspect of the specimen so an additional thin margin of tissue was taken from the inferior portion of the wound cavity and sent as ?new inferior margin?. The specimen was sent to Radiology for specimen mammogram. We then created a transverse left axillary incision of roughly 6 cm at the hairline. We dissected down through the subcutaneous adipose tissue and entered the axillary fat. The lymphoscintigraphy probe did not identify any notable increased signal above background however pair of nodes were palpated 1 of which was blue and were dissected free. There was no ex vivo lymphoscintigraphy signal. Pair of nodes was sent to path. We then irrigated both wound cavities with sterile saline. Marcaine was injected into the muscle layer of the lumpectomy site. A few bleeders were cauterized. A few many metal clips were applied within the lumpectomy cavity. Once the wound cavities were hemostatic we injected some additional Marcaine into the dermis and closed both incisions in layers using multiple interrupted 3-0 Vicryl dermal sutures followed by a running 4-0 Monocryl subcuticular closure. Steri-Strips were applied followed by dry gauze and a breast binder. EBL: 20 mL Specimen: Left sentinel node, left breast lumpectomy and new inferior margin Post-operative Condition: stable Disposition: PACU
[2024-01-02 14:41] VITALS: BP 144/85; PULSE 76; RESP 18; TEMP 36.6; O2SAT 95
[2024-01-02 14:46] VITALS: BP 160/90; PULSE 70; RESP 18; O2SAT 97
[2024-01-02 14:51] VITALS: BP 146/84; PULSE 74; RESP 14; TEMP 36.1; O2SAT 97
[2024-01-02 14:58] VITALS: BP 152/88; PULSE 73; RESP 12; TEMP 36.4; O2SAT 99
[2024-01-02] MEDS: OXYCODONE IR 5 MG TABLET PO (15:00)
[2024-01-02 15:03] VITALS: BP 152/88; PULSE 69; RESP 14; O2SAT 97
== END 2024-01-02 15:30 | disposition home or self-care (01) ==
PROVIDERS: PCP Family Medicine; Referring Provider Surgery; Visit Provider Surgery
PROC: (CPT 19301; principal; 2024-01-02 11:15)
DX: C50.912 Malignant neoplasm of unspecified site of left female breast (principal); Z17.0 Estrogen receptor positive status [ER+]
CPT/HCPCS: 19301; 38500; 19281; 38792; 76098; A9541; C1819; J1100; J1885; J2405; J2704; Q9968

== ENCOUNTER 2024-01-29 06:39 | Day surgery (SDC) | payer MEDICARE, OTHER, SELFPAY ==
[2024-01-17 12:38] VITALS: BMI 23.6
[2024-01-29] VITALS (7 sets, daily range): BP systolic 123–161; BP diastolic 76–92; PULSE 60–75; RESP 12–16; TEMP 36.3–36.5; O2SAT 96–100; BMI 23.6
--- NOTE | 2024-01-29 | PATH_ITS ---
[facility] Accession Number: [id number] No. of containers..02 Tissue . 01 Material submitted: . PART A: breast - LEFT BREAST ANTERIOR/LATERAL MARGINS PART B: breast - LEFT BREAST NEW INFERIOR MARGIN . 01 Clinical history: . A) SUTURE = LATERAL* . 01 Diagnosis: A. LEFT BREAST ANTERIOR/LATERAL MARGINS, EXCISION: Negative for invasive ductal carcinoma. Focal ductal carcinoma in situ, high-grade, solid-type, with a linear span of 1-2 mm. Background previous biopsy changes present. Skin, subcutaneous tissue and skeletal muscle: Unremarkable. Surgical margins: Negative for ductal carcinoma in situ; however, ductal carcinoma in situ is located less than 2 mm from the closest medial (blue-inked margin). Remaining margins are more than 2 mm away from ductal carcinoma in situ. Please see microscopic description. . B. LEFT BREAST, NEW INFERIOR MARGIN, EXCISION: Negative for invasive ductal carcinoma and negative for ductal carinoma in situ. Previous biopsy changes present. Surgical margins: Unremarkable. [facility] 02/05/2024 1518 Local . 01 Comment: Selected slide on part A (slide A1) has also been reviewed by Dr. Lynnette Glez, who agrees with the interpretation. . 01 Electronically signed: . Brenda Daugherty MD, Pathologist NPI- [id number] . 01 Gross description: . A. Received: In formalin with tow identifiers and left breast anterior/lateral margin suture lateral. Specimen: an oriented left re-excision with partial seroma cavity from the left breast. Weight: 16 grams. Measurement: 5.4 cm from anterior to posterior, 5.0 cm medial to lateral, 1.7 cm superior to inferior. Skin ellipse: Present measuring 5.6 x 1.5 cm with a linear previous scar measuring 4.6 cm in length and located centrally. Wire: Absent. Margins: A single suture through the skin designates the lateral edge per the requisition. Inked as follows: Superior orange, inferior red, medial blue, lateral green, anterior yellow, posterior/seroma cavity black. Sliced: From medial to lateral into 11 slices. Lesions: No distinct lesions are identified. Other: The cut surfaces are yellow and slightly firm/rubbery possibly consistent with surgical site changes occupying approximately 90% of the cut surface. Fixation: The specimen was removed on 01/29/2024, time not provided, cold ischemic time cannot be calculated, total fixation time is approximately 56 hours. The specimen is submitted entirely as follows: A1: Slice 1, perpendicular. A2-A10: Sequential slices 2-10, one slice per cassette (slice in A10 is a partial section). A11-A15: Slice 11, green margin, perpendicular. B. Received in formalin with two identifiers and new inferior margin left breast, is an unoriented thin fragment of fibroadipose tissue weighing 4 grams and measuring 5.4 x 2.9 x 0.3 cm. One aspect is smooth and glistening consistent with seroma cavity and is inked black while the opposite surface is yellow and lobulated and is inked green. It is sectioned to reveal yellow slightly rubbery cut surface consistent with surgical site changes. No distinct lesions are identified. The specimen is submitted entirely as follows: B1: First slice perpendicular. B2-B4: Sequential central slices. B5-B6: Last slice, perpendicular. Fixation: The specimen was removed on 01/29/2024, time not provided, cold ischemic time cannot be calculated, total fixation time is approximately 56 hours. ([id number]) /SHANIKA 01/31/2024 0945 Local . 01 Microscopic: . A. To better evaluate the two minute foci of ductal carcinoma in situ (on block A1), deeper levels and immunostains are performed with the following results: Myosin and p63 highlight intact myoepithelial/basal cell layer, supporting ductal carcinoma in situ and absence of invasive carcinoma. . * This test was developed and its performance characteristics determined by [employer]. It has not been cleared or approved by the U.S. Food and Drug Administration. The FDA has determined that such clearance or approval is not necessary. This test is used for clinical purposes. It should not be regarded as investigational or for research. . 01 Pathologist provided ICD-10: C50.912 . 01 CPT . 447025, 982127, I18630, K44605 Specimen Comment: A courtesy copy of this report has been sent to [phone] Performed at: [address] [id number] MD Xu Yang MD Phone: [phone]
[2024-01-29] MEDS: LACTATED RINGERS 1,000 ML 42 ML IV (07:12)
--- NOTE | 2024-01-29 07:28 | SUR.OPER ---
Supine on padded OR bed, head on pillow, arms secured on padded arm boards at <90 degrees abduction, legs uncrossed, safety belt at thigh, tape over blanket over lower legs.
--- NOTE | 2024-01-29 07:44 | PM.HP.1 ---
History of Present Illness History of Present Illness Date Patient Seen: 01/29/24 Time Patient Seen: 07:44 Chief complaint: Re-excision of left breast Narrative: Path from recent left breast lumpectomy showed positive anterior margin. [facility] Medical History Arthritis Seasonal allergies Concussion (2008) HLD (hyperlipidemia) Hypertension Surgical History (Updated 01/17/24 @ 12:45 by Susan Lan RN) S/P lumpectomy, left breast (01/02/24) Hx of LASIK (1999) Hx of bilateral cataract extraction (2019) History of ankle surgery (2002) Hx of hand surgery (1978) History of lumpectomy of left breast Hx of hysterectomy (1977) Social History household members: spouse Smoking Status: Former smoker alcohol intake: current Meds Home Medications and Allergies Home Medications Medication Instructions Recorded Confirmed Type metoprolol succinate 50 mg 50 mg PO BID ##0 12/17/12 01/29/24 History tablet,extended release 24 hr (Toprol XL) atorvastatin 10 mg tablet (Lipitor) 10 mg PO DAILY #0 tabs 12/06/23 01/29/24 History hydrochlorothiazide 25 mg tablet 12.5 mg PO DAILY 12/06/23 01/29/24 History losartan 25 mg tablet 25 mg PO BID 12/06/23 01/29/24 History Allergies Allergy/AdvReac Type Severity Reaction Status Date / Time Penicillins Allergy Severe ANAPHYLAXIS Verified 01/29/24 07:03 latex AdvReac Mild Rash Verified 01/29/24 07:03 Exam Vital Signs (past 8 hours): - 01/29/24 07:08 Temperature 97.4 F L Pulse Rate 60 Respiratory Rate 16 Blood Pressure 161/88 H Pulse Oximetry 100 Oxygen Delivery Method Room Air Oxygen Delivery Method Room Air Narrative Exam Narrative: Well-healing left lumpectomy scar Assessment & Plan Assessment and plan (1) Breast cancer, left: Qualifiers: Breast location: lower outer quadrant of breast Estrogen receptor status: positive Patient sex: female Qualified Code(s): C50.512 - Malignant neoplasm of lower-outer quadrant of left female breast; Z17.0 - Estrogen receptor positive status [ER+] Status: Acute Plan We discussed the plan for re-excision of left breast lumpectomy taking the anterior margin to include skin. She would like to proceed. No antibiotics indicated
[2024-01-29] MEDS: LIDOCAINE 1% W/EPI 20 ML INJ (08:23)
[2024-01-29] MEDS: BUPIVACAINE 0.5% (PF) 30 ML VIAL INJ (08:24)
--- NOTE | 2024-01-29 08:48 | PM.OP.1 ---
Operative Date/Time/Diagnoses Date of procedure: 01/29/24 Time of procedure: 08:48 Pre-op diagnosis: Left breast cancer Post-op diagnosis: same Procedure & Clinicians Procedure: Reexcision of left breast cancer Same procedure as scheduled: Yes Surgeon: Zhao Alicea Anesthesia Type: General Operative Notes Procedure in detail: The patient is a 78-year-old woman who has a left breast cancer. She had a recent left breast wire localized lumpectomy and sentinel lymph node biopsy. Path came back with positive margins. The patient was marked in the preoperative area. The patient was brought to the operating room and general anesthesia was induced via LMA. No antibiotics were administered. A time-out was performed. We reexcised the prior lumpectomy scar including an ellipse of skin measuring approximately 7 cm x 3 cm. We took subcutaneous tissue under the skin until we got to the seroma cavity. We suctioned out the seroma cavity. We continued taking the lateral aspect of the seroma cavity along with the anterior skin specimen. The anterior skin was marked with a silk stitch along its lateral aspect. We also took an additional slice of inferior and medial aspect of the wound cavity and sent both specimens in formalin. Together these two specimens incorporated essentially all of the pre-existing seroma margin. A few bleeders were cauterized. The skin was then closed in layers using multiple interrupted 3-0 Vicryl dermal sutures and a running 4-0 Monocryl subcuticular closure. Steri-Strips and binder were applied. EBL: 30 mL Specimens: Anterior and inferior seroma cavity margins Post-operative Condition: stable Disposition: PACU
== END 2024-01-29 09:25 | disposition home or self-care (01) ==
PROVIDERS: PCP Family Medicine; Referring Provider Surgery; Visit Provider Surgery
PROC: (CPT 19301; principal; 2024-01-29 07:45)
DX: C50.912 Malignant neoplasm of unspecified site of left female breast (principal); Z17.0 Estrogen receptor positive status [ER+]
CPT/HCPCS: 19301; J3010

== ENCOUNTER → 2024-08-26 09:56 | Outpatient (CLI) | payer MEDICARE, OTHER, SELFPAY ==
[2024-08-26 11:16] LABS: Add Manual Diff / Slide Review NO; Basophils Absolute Auto 0 /uL (0-100); Basophils Percent Auto 0.6 % (0-2); Eosinophils Absolute Auto 500 /uL (0-450); Eosinophils Percent Auto 10.2 % (2-4); Hematocrit 38.7 % (36-46); Hemoglobin 13.3 g/dL (12.0-16.0); Lymphocytes Absolute Auto 1100 /uL (1100-4500); Lymphocytes Percent Auto 25.4 % (25-40); Mean Corpuscular HGB Conc 34.4 % (30-36); Mean Corpuscular Hemoglobin 32.1 PG (26-34); Mean Corpuscular Volume 93.5 fL (80-100); Monocytes Absolute Auto 300 /uL (0-900); Monocytes Percent Auto 6.5 % (3-14); Neutrophils Absolute Auto 2600 /uL (1500-7000); Neutrophils Percent Auto 57.3 % (50-75); Platelet Count 168 X10^3/uL (150-400); Red Blood Cell Count 4.14 X10^6/uL (4.0-5.2); Red Cell Distribution Width 13.5 % (11.6-14.8); White Blood Cell Count 4.5 X10^3/uL (4.5-11.0)
[2024-08-26 11:20] LABS: Alanine Aminotransferase 23 IU/L (<35); Albumin 4.3 g/dL (3.5-5.0); Alkaline Phosphatase 66 U/L (38-126); Aspartate Aminotransferase 27 IU/L (14-36); BUN Creatinine Ratio 21.1 (6-22); Bilirubin Total 0.9 mg/dL (0.2-1.3); Blood Urea Nitrogen 16 mg/dL (7-17); Calcium 9.9 mg/dL (8.4-10.2); Carbon Dioxide 28 mmol/L (22-32); Chloride 104 mmol/L (98-107); Cholesterol 160 mg/dL (140-199); Estimated Glomerular Filt Rate > 60 mL/min (>60); Globulin 2.2 g/dL (1.7-4.1); Glucose 89 mg/dL (80-110); HDL Cholesterol 70 mg/dL (40-60); HEMOLYSIS < 15 (0-50); LDL Cholesterol Calculated 70 mg/dL (<100); Potassium 3.9 mmol/L (3.4-5.1); Sodium 139 mmol/L (137-145); Total Protein 6.5 g/dL (6.3-8.2); Triglycerides 98 mg/dL (35-150)
== END ==
PROVIDERS: PCP Family Medicine; Referring Provider Family Medicine; Visit Provider Family Medicine
DX: I10 Essential (primary) hypertension (principal); Z13.0 Encounter for screening for diseases of the blood and blood-forming organs and certain disorders involving the immune mechanism; E78.00 Pure hypercholesterolemia, unspecified; D70.9 Neutropenia, unspecified; C50.912 Malignant neoplasm of unspecified site of left female breast; I47.10 Supraventricular tachycardia, unspecified
CPT/HCPCS: 36415; 80053; 80061; 85025

== ENCOUNTER → 2024-09-05 08:39 | Outpatient (CLI) | payer MEDICARE, OTHER, SELFPAY ==
--- NOTE | 2024-09-05 08:40 | DI.MG.S_ITS ---
BILATERAL DIGITAL DIAGNOSTIC MAMMOGRAM 3D/2D: 09/05/2024 CLINICAL: First mammo post left lumpectomy. Comparison is made to exams dated: 11/08/2023 mammogram, 08/12/2022 mammogram, and 06/14/2021 mammogram - [facility]. The breasts are heterogeneously dense, which may obscure small masses (category c / 51-75% glandular tissue). There are expected post operative findings in the left breast from partial mastectomy. No significant masses, calcifications, or other findings are seen in either breast. IMPRESSION: BENIGN There is no mammographic evidence of malignancy. Expected post surgical changes of left partial mastectomy. A 1 year screening mammogram is recommended; however, shorter interval surveillance can be considered at the direction of treating oncologic/surgical team. Findings and recommendations were conveyed to the patient during today's evaluation. This exam was interpreted at Station ID: [id number]. NOTE: For mammograms, a report in lay terms will be sent to the patient. Approximately 15% of breast malignancies will not be visualized mammographically. In the management of a palpable breast mass, a negative mammogram must not discourage biopsy of a clinically suspicious lesion. Electronically Signed By: Ayo Loera M.D. aty/:09/05/2024 09:32:47 letter sent: Normal Exam ACR BI-RADS Category 2: Benign
== END ==
PROVIDERS: PCP Family Medicine; Referring Provider Family Medicine; Visit Provider Family Medicine
DX: Z85.3 Personal history of malignant neoplasm of breast (principal); Z98.890 Other specified postprocedural states; Z08 Encounter for follow-up examination after completed treatment for malignant neoplasm; N64.4 Mastodynia
CPT/HCPCS: 77066; G0279

== ENCOUNTER → 2024-10-25 10:51 | Outpatient (CLI) | payer MEDICARE, OTHER, SELFPAY ==
--- NOTE | 2024-10-25 10:54 | DI.RAD.S_ITS ---
PROCEDURE: XR KNEE LT 3V INDICATIONS: KNEE PAIN TECHNIQUE: 3 views of the knee were acquired. COMPARISON: None. FINDINGS: Bones: Suggestion of slightly comminuted nondisplaced fracture involving patella. No other fracture or dislocation. [id number]-[id number] tricompartmental osteoarthritis is seen more notably in medial femoral tibial compartment. No patellar subluxation. No suspicious bony lesions. Soft tissues: Moderate suprapatellar joint effusion. No suspicious soft tissue calcifications. IMPRESSION: Suggestion of a nondisplaced and comminuted patellar fracture. No other fracture or dislocation. Svwi-nn-[id number] tricompartmental osteoarthritis. Moderate joint effusion. Dictated by: Octavio De Luna M.D. on 10/25/2024 at 13:46 Approved by: Octavio De Luna M.D. on 10/25/2024 at 13:48
== END ==
PROVIDERS: PCP Family Medicine; Referring Provider Family Medicine; Visit Provider Family Medicine
DX: S83.242A Other tear of medial meniscus, current injury, left knee, initial encounter (principal); M17.12 Unilateral primary osteoarthritis, left knee; M25.462 Effusion, left knee; X58.XXXA Exposure to other specified factors, initial encounter
CPT/HCPCS: 73562

== ENCOUNTER → 2025-01-04 15:50 | Outpatient (CLI) | payer MEDICARE, OTHER, SELFPAY ==
--- NOTE | 2025-01-04 15:55 | DI.MRI.S_ITS ---
PROCEDURE: MR KNEE LT WO CON INDICATIONS: ACUTE MEDIAL MENISCUS TEAR LT KNEE TECHNIQUE: Noncontrast sagittal PD fast spin echo and T2 fast spin echo with fat saturation, sagittal 3-D FLASH with fat saturation; coronal T1 spin echo and PD fast spin echo with fat saturation, and axial PD fast spin echo with fat saturation through the knee. COMPARISON: None. FINDINGS: Image quality: Excellent. Menisci: There is marked degeneration of the medial meniscus with diffuse thinning of the anterior horn medially, blunting of the apices on the sagittal images and signal changes in the posterior horn and midbody which appear to exit to the inferior surface suggesting superimposed complex tear. On the coronal images the medial meniscus is displaced medially predominantly at the mid body Diffuse thinning, maceration/degeneration and increased T2 weighted signal in the medial aspect of the anterior horn of the lateral meniscus and meniscal root ligament. Subtle radial tear of the posterior horn of the lateral meniscus Posterior meniscocapsular separation medial and lateral. Cruciate ligaments: Increased T2 weighted signal with some thinning of the mid and distal anterior cruciate ligament suggests injury/strain but with intact fibers without complete tear. Posterior cruciate ligament is normal. Medial structures: Mild increased T2 weighted signal, edema surrounding the medial collateral ligament. Increased T2 weighted signal and thickening, tendinopathy of the distal semimembranosus tendon and in the posterior oblique ligament. Mild increased T2 weighted signal edema surrounding the distal pes anserine tendons with mild increased bursal fluid. Lateral structures: The lateral collateral ligament, long and short heads of the biceps femoris tendon appear intact. The popliteus tendon appears normal. Iliotibial band appears normal. Anterior structures: On the coronal images there is a high T1, intermediate to high T2 should ever on shaped appearance of the patella (coronal series 12, 13 images 5-7 which commonly may represent variant of tripartite patella versus remote healed fracture of the patella. Less likely represent acute or subacute fracture given the lack of edema on T2 image. Suspected partial tear with increased T2 weighted signal and thickening/irregularity of the patellar attachment of the medial patellar retinaculum acute versus subacute without significant adjacent bone edema. Quadriceps tendon and patellar ligament are intact. Patellar alignment appears normal. Bones and cartilage: Moderate bone edema contusion versus related to degenerative change subchondral edema in the medial femoral condyle and medial tibial plateau with associated moderate osteophytes. Severe diffuse cartilaginous thinning in the medial compartment with [id number] configuration. Kellgren Alfie grade 4 degenerative changes. Joint space: Moderate knee joint effusion. No popliteal cyst. IMPRESSION: Severe degenerative changes in the medial compartment with [id number] configuration, maceration/degeneration of the medial meniscus as discussed above. Diffuse thinning/degenerative changes of the anterior horn of the lateral meniscus medially and in the meniscal root ligament. Mild injury/strain anterior cruciate ligament, distal semimembranosus, posterior oblique ligament. Moderate knee joint effusion. Other chronic findings as above. Dictated by: Ralph Mae M.D. on 01/07/2025 at 8:39 Approved by: Ralph Mae M.D. on 01/07/2025 at 9:20
== END ==
PROVIDERS: PCP Family Medicine; Referring Provider Family Medicine; Visit Provider Family Medicine
DX: S83.242D Other tear of medial meniscus, current injury, left knee, subsequent encounter (principal); M25.462 Effusion, left knee; X58.XXXD Exposure to other specified factors, subsequent encounter
CPT/HCPCS: 73721

== ENCOUNTER → 2025-07-02 12:20 | Outpatient (CLI) | payer MEDICARE, OTHER, SELFPAY ==
--- NOTE | 2025-07-02 12:22 | DI.RAD.S_ITS ---
PROCEDURE: XR CHEST 2V INDICATIONS: ACUTE COUGH TECHNIQUE: 2 views of the chest were acquired. COMPARISON: [facility], CR, XR CHEST 1V, 07/27/2022, 9:54. FINDINGS: Surgical changes and devices: None. Lungs and pleura: Lungs are clear. No pleural effusions or pneumothorax. Bronchial wall thickening is noted. Lungs are mildly hyperinflated with flattening of the diaphragms. Mediastinum: The aorta and pulmonary arteries demonstrate normal size. Calcifications are noted in the thoracic arch. Bones and chest wall: No suspicious bony abnormalities. Soft tissues appear unremarkable. Multilevel degenerative disc disease noted. Mild anterior wedge compression deformity noted in the midthoracic spine. IMPRESSION: Bronchial wall thickening is noted. These findings are nonspecific but can be due to reactive airways disease or bronchitis. No consolidation. No acute cardiopulmonary abnormality is seen. Dictated by: Fe Nuñez M.D. on 07/03/2025 at 9:05 Approved by: Fe Nuñez M.D. on 07/03/2025 at 9:07
== END ==
PROVIDERS: PCP Family Medicine; Referring Provider Family Medicine; Visit Provider Family Medicine
DX: R05.1 Acute cough (principal)
CPT/HCPCS: 71046

== ENCOUNTER → 2025-08-13 11:46 | Outpatient (CLI) | payer MEDICARE, OTHER, SELFPAY ==
--- NOTE | 2025-08-13 11:47 | DI.RAD.S_ITS ---
PROCEDURE: XR CHEST 2V INDICATIONS: Chronic cough TECHNIQUE: 2 views of the chest were acquired. COMPARISON: None. FINDINGS: Surgical changes and devices: None. Lungs and pleura: Lungs are clear. No pleural effusions or pneumothorax. Mediastinum: Mediastinal contours are normal. Heart size is normal. Bones and chest wall: Mild multilevel thoracic degeneration. No suspicious bony abnormalities. Soft tissues appear unremarkable. IMPRESSION: No acute cardiopulmonary abnormality is seen. Dictated by: Sowmya Patel [facility] Interpreted: Mag Mccartney MD on 08/13/2025 at 13:00 Transcribed by: BERTA on 08/13/2025 at 13:20 Approved by: Mag Mccartney M.D. on 08/15/2025 at 7:53
== END ==
PROVIDERS: PCP Family Medicine; Referring Provider Family Medicine; Visit Provider Family Medicine
DX: R05.1 Acute cough (principal); R05.3 Chronic cough
CPT/HCPCS: 71046